=== PATIENT | female | born 1930 | race Caucasian/White ===

== ENCOUNTER 2017-01-03 14:15 | Emergency (ER) | payer OTHER, BC ==
[2017-01-03 14:46] VITALS: TEMP 97.7; BMI 16.5
--- NOTE | 2017-01-03 15:01 | PDOC ---
History of Present Illness - General History Source: Patient Exam Limitations: No Limitations <Chely Navas - Last Filed: 01/03/17 18:53> <Corine Mack - Last Filed: 01/04/17 15:00> - General Chief Complaint: Chest Pain Stated Complaint: CHEST PAIN Time Seen by Provider: 01/03/17 14:51 - History of Present Illness Initial Comments: CHIEF COMPLAINT: 86 y/o afebrile female with PMH HTN and ?afib (on Plavix) c/o chest pain, nausea and retching since yesterday morning. HISTORY OF PRESENT ILLNESS: The patient states she woke up yesterday with anterior chest pain that she describes as "soreness" in the morning that went away. She also began feeling "lousy", complaining of nausea and retching. She states the symptoms continued today and she hasn't eaten or drank much. She states she's had a dry cough and sneezing for a few weeks now but that is improving. She denies fever, PEDRO, neck pain, changes in vision/hearing, hemoptysis, abdominal pain, hematuria, dysuria, diarrhea, constipation, melena, bloody stools. PCP is Dr. Phoenix Vital signs on arrival are within normal limits. REVIEW OF SYSTEMS: GENERAL/CONSTITUTIONAL: No fever/chills. No weakness. No weight change. HEAD, EYES, EARS, NOSE AND THROAT: No change in vision. +right ear pain. No ear discharge. No sore throat. CARDIOVASCULAR: +anterior chest pain. No shortness of breath. RESPIRATORY: +dry cough and sneezing. No wheezing or hemoptysis. GASTROINTESTINAL: +nausea and retching. No abd pain, diarrhea, constipation. GENITOURINARY: No dysuria, frequency, or change in urination. MUSCULOSKELETAL: No joint or muscle swelling or pain. No neck or back pain. SKIN: No rash or easy bruising. NEUROLOGIC: No headache, vertigo, loss of consciousness, or loss of sensation. PHYSICAL EXAM: GENERAL: The patient is awake, alert, and fully oriented, in no acute distress. She is well appearing and pleasant. She is sneezing quite a bit. HEAD: Normal with no signs of trauma. ENT: Pupils equal, round and reactive to light, extraocular movements intact, sclera anicteric, conjunctiva clear. Normal TM and canal b/l. LUNGS: Clear to auscultation bilaterally. Normal excursion. No respiratory distress or use of accessory muscles. CV: RRR, S1/S2, no MRG. Cap refill < 2 sec. CHEST WALL: Chest pain reproduced with palpation of entire anterior chest from T4-T8. ABDOMEN: Soft, non-distended, non-tender even to deep palpation, no hepatomegaly or splenomegaly, no masses. EXTREMITIES: Normal range of motion, no edema. NEUROLOGICAL: Normal speech. CN II-XII grossly intact. PSYCH: Normal mood, normal affect. SKIN: Warm, dry, decreased turgor, no rashes or lesions noted. (Chely Navas) Past History - Past Medical History HTN: Yes - Psycho/Social/Smoking Cessation Hx Anxiety: No Suicidal Ideation: No Smoking History: Never smoked Hx Alcohol Use: No Drug/Substance Use Hx: No Substance Use Type: None <Chely Navas - Last Filed: 01/03/17 18:53> <Corine Mack - Last Filed: 01/04/17 15:00> - Past Medical History Allergies/Adverse Reactions: Allergies Allergy/AdvReac Type Severity Reaction Status Date / Time No Known Allergies Allergy Verified 01/03/17 14:22 Home Medications: Ambulatory Orders Aspirin [ASA -] 81 mg PO DAILY 01/03/17 Clopidogrel Bisulfate [Plavix -] 75 mg PO DAILY 01/03/17 Levothyroxine Sodium [Unithroid] 50 mcg PO DAILY 01/03/17 Metoprolol Tartrate [Lopressor -] 25 mg PO BID 01/03/17 - Vital Signs Last Vital Signs Temp Pulse Resp BP Pulse Ox 97.7 F 67 22 139/70 95 01/03/17 14:21 01/03/17 18:21 01/03/17 14:21 01/03/17 18:21 01/03/17 18:21 Heart Score/ECG Review <Chely Navas - Last Filed: 01/03/17 18:53> <Corine Mack - Last Filed: 01/04/17 15:00> - ECG Intrepretation Comment:: Twelve-lead EKG was performed and reviewed by Dr. Mack. There is normal sinus rhythm with a normal rate. The axis is normal. The intervals are normal. There are no ST or T wave abnormalities. Impression: Normal twelve-lead EKG (Chely Navas) ED Treatment Course - LABORATORY CBC & Chemistry Diagram: 01/03/17 13:35 01/03/17 13:35 <Chely Navas - Last Filed: 01/03/17 18:53> - LABORATORY CBC & Chemistry Diagram: 01/03/17 13:35 01/03/17 13:35 <Corine Mack - Last Filed: 01/04/17 15:00> - ADDITIONAL ORDERS Additional order review: 01/03/17 13:35 RBC 4.08 MCV 93.9 MCHC 33.4 RDW 13.7 MPV 7.3 L D Neutrophils % 74.6 Lymphocytes % 7.9 L Monocytes % 16.8 H Eosinophils % 0.2 Basophils % 0.5 - Medications Given in the ED: ED Medications Discontinued Medications Generic Name Dose Route Start Last Admin Trade Name Marita PRN Reason Stop Dose Admin Acetaminophen 650 mg 01/03/17 17:55 01/03/17 18:20 Tylenol - PO 01/03/17 17:56 650 mg ONCE ONE Administration Sodium Chloride 1,000 mls @ 1,000 mls/hr 01/03/17 15:02 01/03/17 15:40 Normal Saline - IV 01/03/17 16:01 1,000 mls/hr ASDIR STA Administration Famotidine/Sodium Chloride 50 mls @ 100 mls/hr 01/03/17 16:30 01/03/17 16:43 Pepcid 20 Mg Premixed Ivpb - IVPB 01/03/17 16:59 100 mls/hr ONCE ONE Administration Ondansetron HCl 4 mg 01/03/17 16:30 01/03/17 16:43 Zofran Injection IVPUSH 01/03/17 16:31 4 mg ONCE ONE Administration Medical Decision Making <Chely Navas - Last Filed: 01/03/17 18:53> <Corine Mack - Last Filed: 01/04/17 15:00> - Medical Decision Making A/P: 86 y/o afebrile female with chest pain, nausea, retching since yesterday morning. Plan is as follows: 1. EKG 2. CXR 3. Labs 4. IV fluids 5. IV pepcid and zofran CXR IMPRESSION: No acute pathology. Coarse lung markings. Labs unremarkable EKG normal UA negative for infection. The patient states she feels well but still has chest soreness. Will give PO tylenol and then discharge to home. The patient was instructed to take tylenol if needed for pain and take at least 1 deep breath per hour. Suggested she apply ice if she can tolerate it to her sore chest. Instructed her to drink plenty of fluids and call Dr. Phoenix Thursday to schedule follow up appointment. Instructed her to return to the ER immediately with any worsening or concerning symptoms. The patient verbalizes understanding of all instructions, has no further questions and is awaiting discharge. (Chely Navas) *DC/Admit/Observation/Transfer <Chely Navas - Last Filed: 01/03/17 18:53> <Corine Mack - Last Filed: 01/04/17 15:00> Diagnosis at time of Disposition: Musculoskeletal chest pain, Cough Nausea and vomiting Qualifiers: Vomiting type: unspecified Vomiting Intractability: non-intractable Qualified Code(s): R11.2 - Nausea with vomiting, unspecified - Discharge Dispostion Disposition: HOME Condition at time of disposition: Good - Referrals Referrals: Brendan Phoenix MD [Primary Care Provider] - - Patient Instructions Printed Discharge Instructions: DI for Musculoskeletal Pain, Nausea and Vomiting-Adult Additional Instructions: Discharge Instructions: -Your lab work, urinalysis, chest xray and EKG were normal -Please take 650mg of Tylenol every 4 hours for pain if needed -Take at least 1 deep breath per hour -Call Dr. Phoenix on Thursday to schedule follow up appointment -Return to the ER with any worsening or concerning symptoms. - Attestations Physician Attestion: I reviewed the case with the mid-level practitioner and agree with the mid- level practitioner's assessment, diagnosis and disposition. (Corine Mack)
[2017-01-03] MEDS ORDERED: SODIUM CHLORIDE 1,000 ML IV STA (15:02)
[2017-01-03 15:46] LABS: BASOPHIL 0.5 % (0-2.0); EOSINOPHIL 0.2 % (0-4.5); MCH 31.4 pg (25.7-33.7); MCHC 33.4 g/dl (32.0-36.0); MEAN CELL VOLUME 93.9 fl (80-96); MEAN PLT VOLUME 7.3 fl (7.5-11.1); NEUTROPHILS 74.6 % (42.8-82.8); PLATELET COUNT 482 K/MM3 (134-434); RDW 13.7 % (11.6-15.6); WHITE BLOOD COUNT 8.5 K/mm3 (4.0-10.0)
[2017-01-03 16:08] LABS: ALBUMIN 3.2 g/dl (3.4-5.0); ANION GAP 11 (8-16); BILIRUBIN,TOTAL 0.9 mg/dL (0.2-1.0); CALCIUM 9.5 mg/dL (8.5-10.1); CO2 27 mmol/L (21-32); CREATININE 0.9 mg/dL (0.55-1.02); GLUCOSE,RANDOM 98 mg/dL (74-106); SGOT/AST 13 U/L (15-37); SGPT/ALT 9 U/L (12-78); TOT PROT 7.1 g/dl (6.4-8.2)
[2017-01-03 16:11] LABS: ALK PHOS 94 U/L (45-117); TROPONIN I < 0.02 ng/ml (0.00-0.05)
[2017-01-03] MEDS ORDERED: FAMOTIDINE 20 MG/50 ML IVPB 50 ML IVPB ONE ×2 (16:30→16:39)
[2017-01-03] MEDS ORDERED: ONDANSETRON 4 MG/2 ML VIAL IVPUSH ONE (16:30)
[2017-01-03 16:32] LABS: URINE APPEARANCE CLEAR; URINE BILIRUBIN NEGATIVE (NEGATIVE); URINE BLOOD NEGATIVE (NEGATIVE); URINE COLOR LTYELLOW; URINE GLUCOSE (UA) NEGATIVE (NEGATIVE); URINE KETONE TRACE (NEGATIVE); URINE NITRITE NEGATIVE (NEGATIVE); URINE PROTEIN NEGATIVE (NEGATIVE); URINE UROBILINOGEN NEGATIVE mg/dL (0.2-1.0)
[2017-01-03] MEDS ORDERED: ONDANSETRON 4 MG/2 ML VIAL ONE (16:39)
[2017-01-03 16:41] LABS: URINE LEUK ESTERASE TRACE (NEGATIVE)
[2017-01-03 16:43] LABS: URINE MUCUS RARE; URINE RBC 3 /hpf (0-3); URINE WBC 3 /hpf (3-5)
[2017-01-03] MEDS ORDERED: ACETAMINOPHEN 325 MG TABLET (FP) PO ONE (17:55)
[2017-01-03] MEDS ORDERED: ACETAMINOPHEN 325 MG TABLET (FP) ONE (18:17)
[2017-01-03 19:16] VITALS: BP 139/70; PULSE 67
--- NOTE | 2017-01-04 13:58 | EKG ---
Test Reason : Blood Pressure : / mmHG Vent. Rate : 074 BPM Atrial Rate : 074 BPM P-R Int : 142 ms QRS Dur : 078 ms QT Int : 408 ms P-R-T Axes : 044 -49 031 degrees QTc Int : 452 ms NORMAL SINUS RHYTHM LEFT ANTERIOR FASCICULAR BLOCK ABNORMAL ECG WHEN COMPARED WITH ECG OF 12-AUG-2006 08:40, NO SIGNIFICANT CHANGE WAS FOUND Confirmed by DAPHNE MARTIN, BILLY ([id number]) on 01/04/2017 1:57:59 PM Referred By: Confirmed By:BILLY SERNA MD
== END 2017-01-03 19:16 | disposition home or self-care (01) ==
LOC: JER 14:15
PROC: 3E0337Z Introduction of Electrolytic and Water Balance Substance into Peripheral Vein, Percutaneous Approach (ICD-10-PCS; principal; 2017-01-03)
PROC: 3E033GC Introduction of Other Therapeutic Substance into Peripheral Vein, Percutaneous Approach (ICD-10-PCS; 2017-01-03)
PROC: 3E033GC Introduction of Other Therapeutic Substance into Peripheral Vein, Percutaneous Approach (ICD-10-PCS; 2017-01-03)
DX: R07.89 Other chest pain (principal); I10 Essential (primary) hypertension; I48.91 Unspecified atrial fibrillation; Z79.01 Long term (current) use of anticoagulants
CPT/HCPCS: 36415; 71010-TC; 80053; 81003; 81015; 82550; 83605; 83690; 84484; 85025; 87086; 93005; 93010; 96361; 96365; 96375; 99284-25

== ENCOUNTER 2017-01-14 14:07 | Inpatient (IN) | payer OTHER, BC ==
--- NOTE | 2017-01-14 15:15 | PDOC ---
History of Present Illness - General Chief Complaint: Weakness Stated Complaint: Weakness Time Seen by Provider: 01/14/17 14:22 History Source: Patient Exam Limitations: Clinical Condition - History of Present Illness Initial Comments: 01/14/17 15:09 The patient is an 86F with a PMH of HTN, hypothyroidism, a-fib on asa and plavix , and past TIA who presents to the ED via EMS from home for weakness, cough, jaw pain, and headache. EMS states that the patient complained of weakness, although vitals were stable on their arrival. The patient states that she has not eaten since yesterday. Today she states she feels weak. Her headache is worse with jaw movement and talking. The patient denies any focal neurologic deficits. PSH: noncontributory ALlergies: none Social: none Past History - Past Medical History Allergies/Adverse Reactions: Allergies Allergy/AdvReac Type Severity Reaction Status Date / Time No Known Allergies Allergy Verified 01/03/17 14:22 Home Medications: Ambulatory Orders Aspirin [ASA -] 81 mg PO DAILY 01/03/17 Clopidogrel Bisulfate [Plavix -] 75 mg PO DAILY tablet 01/26/17 Levothyroxine [Synthroid -] 50 mcg PO DAILY@0700 tablet 01/26/17 Metoprolol Succinate [Toprol Xl -] 25 mg PO DAILY #7 tab.sr.24h 01/26/17 Prednisone [Deltasone -] 40 mg PO UTDICT #1 tablet 01/26/17 HTN: Yes - Psycho/Social/Smoking Cessation Hx Anxiety: No Suicidal Ideation: No Smoking History: Never smoked Hx Alcohol Use: No Drug/Substance Use Hx: No Substance Use Type: None Review of Systems - Review of Systems Able to Perform ROS?: Yes Is the patient limited Nepali proficient: No Constitutional: Yes: Chills. No: Fever HEENTM: Yes: Recent change in vision Respiratory: Yes: Shortness of Breath Cardiac (ROS): Yes: Chest Pain ABD/GI: Yes: Constipated, Nausea. No: Diarrhea, Vomiting : No: Burning, Dysuria, Discharge, Hematuria Neurological: Yes: Headache, Weakness. No: Numbness, Paresthesia, Tingling *Physical Exam - Vital Signs Last Vital Signs Temp Pulse Resp BP Pulse Ox 97.5 F L 66 20 127/72 97 01/14/17 14:22 01/14/17 14:22 01/14/17 14:22 01/14/17 14:22 01/14/17 14:22 - Physical Exam General Appearance: Yes: Appropriately Dressed, Thin HEENT: positive: Pale Conjunctivae. negative: Tonsillar Exudate, Tonsillar Erythema, TM Bulging, TM Dull, TM Erythema Respiratory/Chest: positive: Crackles. negative: Chest Tender, Respiratory Distress Cardiovascular: positive: Regular Rhythm, Regular Rate, S1, S2 Gastrointestinal/Abdominal: positive: Tender (epigastric), Flat, Soft. negative : Guarding, Rebound Musculoskeletal: positive: CVA Tenderness (R), CVA Tenderness (L) Integumentary: positive: Dry, Warm. negative: Swelling Neurologic: positive: Alert, Normal Mood/Affect Heart Score/ECG Review - ECG Impressions Normal ECG: Yes ED Treatment Course - LABORATORY CBC & Chemistry Diagram: 01/24/17 07:35 01/24/17 07:35 - RADIOLOGY Radiology Studies Ordered: Category Date Time Status CHEST X-RAY PORTABLE* [RAD] Stat Radiology 01/14/17 14:22 Taken Medical Decision Making - Medical Decision Making 01/14/17 16:14 The patient is an 86F with a PMH of HTN, hypothyroidism, a-fib on plavix and asa , and TIA who presents via EMS for weakness, cough, and jaw pain w/ headache. I have spoken to the patient's PCP who states that the patient is normally coherent, lives alone, and self reliant. His # is [phone] and wants updates. I have ordered a broad set of labs and imaging to rule out an infectious process and sepsis. I am also concerned for TMJ and/or temporal arteritis. I have concern for a UTI/pna and I want to rule out ACS. EKG is NSR. Labs are pending. No white count. 01/14/17 16:20 CXR shows no acute process. 01/14/17 20:[address] was read as negative. 01/14/17 21:51 The patient has a 1+ leuk esterase in urine. Is still complaining of weakness. Dr. Yeung has agreed to accept the admission for weakness, UTI, and AMS. *DC/Admit/Observation/Transfer Diagnosis at time of Disposition: Weakness UTI (urinary tract infection) Qualifiers: Urinary tract infection type: site unspecified Hematuria presence: without hematuria Qualified Code(s): N39.0 - Urinary tract infection, site not specified Altered mental status Qualifiers: Altered mental status type: unspecified Qualified Code(s): R41.82 - Altered mental status, unspecified - Discharge Dispostion Disposition: VNS/HOME HEALTH CARE Condition at time of disposition: Improved Admit: Yes - Prescriptions - Referrals - Attestations Physician Attestion: 01/29/17 13:40 I, Dr. Clinton Vera, attest that this document has been prepared under my direction and personally reviewed by me in its entirety. I further attest, that it accurately reflects all work, treatment, procedures and medical decision -making performed by me.
[2017-01-14] MEDS ORDERED: SODIUM CHLORIDE 0.9% 1000 ML INFUS.BAG IV ONE ×2 (15:19→18:55)
--- NOTE | 2017-01-14 15:37 | PDOC ---
Attending Attestation - Resident Resident Name: Clinton Vera - ED Attending Attestation I have performed the following: I have examined & evaluated the patient, The case was reviewed & discussed with the resident, I agree w/resident's findings & plan, Exceptions are as noted - HPI HPI: 86 yo F hx hypothyroid, HTN, afib presents with weakness for past few days. She states she has had poor appetite, dec PO intake, diffuse body weakness. Denies F /C, recent illness. No recent trauma. Denies cp, SOB. No recent vision changes. - Physicial Exam PE: GENERAL: Awake, alert, and oriented, in no acute distress. Appears pale and thin. HEAD: No signs of trauma EYES: PERRLA, EOMI, sclera anicteric, conjunctiva clear ENT: Auricles normal inspection, hearing grossly normal, nares patent, oropharynx clear without exudates. Dry mucosa NECK: Normal ROM, supple, no lymphadenopathy, JVD, or masses LUNGS: Breath sounds equal, clear to auscultation bilaterally. No wheezes, and no crackles HEART: Regular rate and rhythm, normal S1 and S2, no murmurs, rubs or gallops ABDOMEN: Soft, nontender, normoactive bowel sounds. No guarding, no rebound. No masses EXTREMITIES: Normal range of motion, no edema. No clubbing or cyanosis. No cords, erythema, or tenderness NEUROLOGICAL: Cranial nerves II through XII grossly intact. Normal speech. Motor and sensation intact. SKIN: Warm, Dry, normal turgor, no rashes or lesions noted. - Medical Decision Making 86 yo F vague historian presents with diffuse weakness. Multiple possibilities on DDx including ACS, electrolyte disorders, anemia, UTI, pna. Will obtain labs , UA, CXR.
[2017-01-14 15:51] LABS: BASOPHIL 1.1 % (0-2.0); EOSINOPHIL 0.5 % (0-4.5); MCH 30.2 pg (25.7-33.7); MCHC 32.6 g/dl (32.0-36.0); MEAN CELL VOLUME 92.6 fl (80-96); MEAN PLT VOLUME 7.3 fl (7.5-11.1); NEUTROPHILS 75.9 % (42.8-82.8); PLATELET COUNT 542 K/MM3 (134-434); RDW 14.4 % (11.6-15.6); WHITE BLOOD COUNT 8.9 K/mm3 (4.0-10.0)
[2017-01-14 16:18] LABS: MAGNESIUM 2.3 mg/dL (1.8-2.4)
[2017-01-14 16:19] LABS: ALBUMIN 2.8 g/dl (3.4-5.0); ALK PHOS 82 U/L (45-117); ANION GAP 11 (8-16); BILIRUBIN,TOTAL 0.5 mg/dL (0.2-1.0); CALCIUM 9.4 mg/dL (8.5-10.1); CO2 28 mmol/L (21-32); CREATININE 0.8 mg/dL (0.55-1.02); GLUCOSE,RANDOM 84 mg/dL (74-106); SGOT/AST 12 U/L (15-37); SGPT/ALT 8 U/L (12-78); TOT PROT 6.5 g/dl (6.4-8.2); TROPONIN I < 0.02 ng/ml (0.00-0.05)
[2017-01-14 16:21] LABS: INR 1.14 (0.82-1.09); PROTHROMBIN TIME (PATIENT) 12.6 SEC (9.98-11.88)
[2017-01-14 20:38] LABS: URINE APPEARANCE CLEAR; URINE BILIRUBIN NEGATIVE (NEGATIVE); URINE BLOOD 2+ (NEGATIVE); URINE COLOR LTYELLOW; URINE GLUCOSE (UA) NEGATIVE (NEGATIVE); URINE KETONE 1+ (NEGATIVE); URINE NITRITE NEGATIVE (NEGATIVE); URINE PROTEIN NEGATIVE (NEGATIVE); URINE UROBILINOGEN NEGATIVE mg/dL (0.2-1.0)
[2017-01-14 21:28] LABS: URINE LEUK ESTERASE 1+ (NEGATIVE)
[2017-01-14 21:52] LABS: URINE MUCUS FEW; URINE RBC 13 /hpf (0-3); URINE WBC 4 /hpf (3-5)
[2017-01-15] MEDS: DEXTROSE 5%-0.45% SALINE 1,000 ML IV SCH ×2 (03:13→23:02)
[2017-01-15 04:24] VITALS: BMI 16.3
[2017-01-15 09:15] LABS: THYROID STIMULATING HORMONE 6.99 uIU/ml (0.358-3.74)
--- NOTE | 2017-01-15 10:34 | HP ---
Admitting History and Physical - Primary Care Physician PCP: Clinton Yeung - Admission Chief Complaint: progressive weakness History of Present Illness: which has been going on for the past several weeks of insidious onset for this 86 y/o F, who has (up until now) lived independently on her own. Past hx is (+) for hypothyroidism & ATF (but was taken off A/c likely due to unacceptable risks ); she remains on ASA + Plavix. She c/o generalized aches and pains as well as bilat jaw angle pains (which is not new), but has been able to eat nonetheless. Since this all began, she has been very inactive, eating poorly, and just sitting around. She denied any new pains, n-v, diarrhea, dizziness, CP; but does get occasional coughing; she denies dysuria, leg swelling, but c/o feeling cold. She was seen in the ED about 10 days ago for this very problem, and blood testing at the time was unremarkable and was d/c'd back home. She was seen in f/ u by her PCP, who found her listless but awake and coherent in her residence, with stable VS; however, she continued to have progressive weakness to the point where she could no longer carry out her daily living activities. History Source: Patient Limitations to Obtaining History: No Limitations - Past Medical History [employer]: Yes: CVA (old Hx of TIA) Cardiovascular: Yes: AFIB (intermittent) Pulmonary: Yes: Other (unexplained cough) ...: No Musculoskeletal: Yes: Other (generalized aches and pains, but c/o bilat jaw pains, R>L) Endocrine: Yes: Hypothyroidism - Past Surgical History Past Surgical History: Yes: Breast Biopsy, Cholecystectomy - Smoking History Smoking history: Never smoked - Alcohol/Substance Use Hx Alcohol Use: No History of Substance Use: reports: None - Social History Usual Living Arrangement: Yes: Alone ADL: Independent 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 History of Recent Travel: No Home Medications - Allergies Allergies/Adverse Reactions: Allergies Allergy/AdvReac Type Severity Reaction Status Date / Time No Known Allergies Allergy Verified 01/03/17 14:22 - Home Medications Home Medications: Ambulatory Orders Aspirin [ASA -] 81 mg PO DAILY 01/03/17 Clopidogrel Bisulfate [Plavix -] 75 mg PO DAILY 01/03/17 Levothyroxine Sodium [Unithroid] 50 mcg PO DAILY 01/03/17 Metoprolol Tartrate [Lopressor -] 25 mg PO BID 01/03/17 Family Disease History - Family Disease History Family History: Unremarkable Review of Systems - Review of Systems Constitutional: reports: Weakness Eyes: reports: No Symptoms HENT: reports: Other (see HPI) Neck: reports: No Symptoms Cardiovascular: reports: No Symptoms Respiratory: reports: Cough Gastrointestinal: reports: Abdominal Pain Genitourinary: reports: No Symptoms Breasts: reports: No Symptoms Reported Musculoskeletal: reports: Muscle Weakness Integumentary: reports: No Symptoms Neurological: reports: Weakness Endocrine: reports: Intolerance to Cold Hematology/Lymphatic: reports: No Symptoms Psychiatric: reports: No Symptoms Physical Examination Vital Signs: Vital Signs Temperature 98 F 01/15/17 09:15 Pulse Rate 72 01/15/17 09:15 Respiratory Rate 20 01/15/17 09:15 Blood Pressure 145/57 01/15/17 09:15 O2 Sat by Pulse Oximetry (%) 98 01/15/17 04:43 Findings/Remarks: skin--dry head--NC; alopecia; temporal pulses felt bilaterally eyes--eomi, anicteric oral--normal appearing mucous membranes ears--no deformities; tenderness on TMJ area; hearing intact neck--no masses, nodes, bruits or goiter lungs--BS bilat diminshed; unlabored heart--RR breasts--bilat atrophy no masses, nodules, (+) old Rt periareolar scar chest--no rib tenderness abd--soft, RUQ scar, (+) notable RUQ tenderness, no other mases or tenderness anywhere else ext--bilat muscular atrophy; no soft tissue tenderness, puilses bilat diminished ; no CCE; no pain on ROM back--no zuri tenderness neuro--alert, coherent and able to give pertinent details of history as it relates to her condition; memory appears to be grossly intact; speech slow but fluent; good eye contact; follows commands well; moves all Extrem purposefully; plantars downgoing; no rigidity or tremors appreciated Labs: CBCD WBC 8.9 K/mm3 (4.0-10.0) 01/14/17 14:51 RBC 3.79 M/mm3 (3.60-5.2) 01/14/17 14:51 Hgb 11.4 GM/dL (10.7-15.3) D 01/14/17 14:51 Hct 35.1 % (32.4-45.2) 01/14/17 14:51 MCV 92.6 fl (80-96) 01/14/17 14:51 MCHC 32.6 g/dl (32.0-36.0) 01/14/17 14:51 RDW 14.4 % (11.6-15.6) 01/14/17 14:51 Plt Count 542 K/MM3 (134-434) H 01/14/17 14:51 MPV 7.3 fl (7.5-11.1) L 01/14/17 14:51 CMP Sodium 138 mmol/L (136-145) 01/14/17 14:51 Potassium 4.2 mmol/L (3.5-5.1) 01/14/17 14:51 Chloride 99 mmol/L (98-107) 01/14/17 14:51 Carbon Dioxide 28 mmol/L (21-32) 01/14/17 14:51 Anion Gap 11 (8-16) 01/14/17 14:51 BUN 13 mg/dL (7-18) 01/14/17 14:51 Creatinine 0.8 mg/dL (0.55-1.02) 01/14/17 14:51 Creat Clearance w eGFR > 60 (>60) 01/14/17 14:51 Random Glucose 84 mg/dL (74-106) 01/14/17 14:51 Calcium 9.4 mg/dL (8.5-10.1) 01/14/17 14:51 Total Bilirubin 0.5 mg/dL (0.2-1.0) D 01/14/17 14:51 AST 12 U/L (15-37) L 01/14/17 14:51 ALT 8 U/L (12-78) L 01/14/17 14:51 Alkaline Phosphatase 82 U/L (45-117) 01/14/17 14:51 Total Protein 6.5 g/dl (6.4-8.2) 01/14/17 14:51 Albumin 2.8 g/dl (3.4-5.0) L 01/14/17 14:51 CARDIAC ENZYMES Creatine Kinase 40 IU/L (26-192) 01/14/17 14:51 Troponin I < 0.02 ng/ml (0.00-0.05) 01/14/17 14:51 Urine Test Results Urine Color Ltyellow 01/14/17 19:53 Urine Appearance Clear 01/14/17 19:53 Urine pH 5.0 (5.0-8.0) 01/14/17 19:53 Ur Specific Guston 1.015 (1.005-1.025) 01/14/17 19:53 Urine Protein Negative (NEGATIVE) 01/14/17 19:53 Urine Glucose (UA) Negative (NEGATIVE) 01/14/17 19:53 Urine Ketones 1+ (NEGATIVE) H 01/14/17 19:53 Urine Blood 2+ (NEGATIVE) H 01/14/17 19:53 Urine Nitrite Negative (NEGATIVE) 01/14/17 19:53 Urine Bilirubin Negative (NEGATIVE) 01/14/17 19:53 Ur Leukocyte Esterase 1+ (NEGATIVE) H 01/14/17 19:53 Urine RBC 13 /hpf (0-3) 01/14/17 19:53 Urine WBC 4 /hpf (3-5) 01/14/17 19:53 Ur Epithelial Cells Rare /hpf (FEW) 01/14/17 19:53 Urine Mucus Few 01/14/17 19:53 Imaging - Results Chest X-ray: Report Reviewed Cat Scan: Report Reviewed EKG: Report Reviewed Problem List - Problems (1) Weakness Assessment/Plan: to the extent that she is no longer capable of caring for self; due to underlying insidious onset of gross weakness; which could be due to occult infection; metabolic matters, or even a malignancy. PLAN: undertake w/u. Code(s): R53.1 - WEAKNESS (2) Pain localized to upper abdomen Assessment/Plan: specifically the RUQ area but extending to epigastric area as well. PLAN: US of Abd; check stool for OB Code(s): R10.10 - UPPER ABDOMINAL PAIN, UNSPECIFIED (3) Cough Assessment/Plan: intermittent; unsure if this is related to said condition; CXR non diagnostic Code(s): R05 - COUGH (4) UTI (urinary tract infection) Assessment/Plan: UA suggests infection; though unsure if this is behind her clinical malaise; will Tx with Abs. Code(s): N39.0 - URINARY TRACT INFECTION, SITE NOT SPECIFIED Qualifiers: Urinary tract infection type: site unspecified Hematuria presence: without hematuria Qualified Code(s): N39.0 - Urinary tract infection, site not specified (5) ESR raised Assessment/Plan: along with high CRP; exam reveals bilat jaw pain, but unsure if this is a "[place]" type of finding PLAN: neuro eval Code(s): R70.0 - ELEVATED ERYTHROCYTE SEDIMENTATION RATE (6) Atrial fibrillation Assessment/Plan: history of: but not on a-c any longer as per PCP; HR seems to be well controlled. cont dual agents & BB Code(s): I48.91 - UNSPECIFIED ATRIAL FIBRILLATION Qualifiers: Atrial fibrillation type: unspecified Qualified Code(s): I48.91 - Unspecified atrial fibrillation (7) Hypothyroid Assessment/Plan: for which she is supplementation; TSH a bit high; will get full TFTS Code(s): E03.9 - HYPOTHYROIDISM, UNSPECIFIED Qualifiers: Hypothyroidism type: unspecified Qualified Code(s): E03.9 - Hypothyroidism, unspecified (8) History of TIA (transient ischemic attack) Assessment/Plan: is o asa+ Plavix; cause possible 2nd ATF; will cont both agents Code(s): Z86.73 - PRSNL HX OF TIA (TIA), AND CEREB INFRC W/O RESID DEFICITS (9) Failure to thrive in adult Assessment/Plan: Has thus far been independent but insidious onset of weakness is no longer making this possible; unsure as of this time if this matter is reversible. PLAN : will need further w/u; may need SNF placement Code(s): R62.7 - ADULT FAILURE TO THRIVE Assessment/Plan debilitated 86 y/o WF failing to thrive in her usual environment; and is inacapable of undertaking own daily living activities. ~~~~~~~~~~~~~~~~~~~~~~~~ Dr Yeung.....1 Hr
[2017-01-15 11:09] LABS: FREE T4 1.53 ng/dl (0.76-1.46)
[2017-01-15] MEDS: METOPROLOL SUCCINATE 25 MG TAB.SR.24H (FP) PO SCH (11:41)
[2017-01-15] MEDS: LEVOFLOXACIN 250 MG IVPB 50 ML IVPB SCH (11:41)
--- NOTE | 2017-01-15 11:56 | EKG ---
Test Reason : Blood Pressure : / mmHG Vent. Rate : 063 BPM Atrial Rate : 063 BPM P-R Int : 140 ms QRS Dur : 072 ms QT Int : 420 ms P-R-T Axes : 011 -56 012 degrees QTc Int : 429 ms NORMAL SINUS RHYTHM LEFT ANTERIOR FASCICULAR BLOCK ABNORMAL ECG WHEN COMPARED WITH ECG OF 03-JAN-2017 14:30, NO SIGNIFICANT CHANGE WAS FOUND Confirmed by EMILIO MARTIN, CHAUNCEY ([id number]) on 01/15/2017 11:56:16 AM Referred By: Confirmed By:CHAUNCEY JHAVERI MD
[2017-01-15] MEDS ORDERED: ACETAMINOPHEN 325 MG TABLET (FP) PO PRN (17:59)
[2017-01-16] MEDS: LEVOTHYROXINE NA 50 MCG TABLET (FP) PO SCH (06:37)
[2017-01-16 09:04] LABS: ANION GAP 7 (8-16); CALCIUM 8.8 mg/dL (8.5-10.1); CO2 26 mmol/L (21-32); GLUCOSE,RANDOM 116 mg/dL (74-106)
[2017-01-16 09:06] LABS: CREATININE 0.6 mg/dL (0.55-1.02)
[2017-01-16 09:10] LABS: MCH 30.3 pg (25.7-33.7); MCHC 32.7 g/dl (32.0-36.0); MEAN CELL VOLUME 92.6 fl (80-96); MEAN PLT VOLUME 7.4 fl (7.5-11.1); PLATELET COUNT 550 K/MM3 (134-434); RDW 13.7 % (11.6-15.6); WHITE BLOOD COUNT 7.8 K/mm3 (4.0-10.0)
[2017-01-16] MEDS: LEVOFLOXACIN 250 MG IVPB 50 ML IVPB SCH (09:38)
[2017-01-16] MEDS: METOPROLOL SUCCINATE 25 MG TAB.SR.24H (FP) PO SCH (09:38)
[2017-01-16] MEDS: CLOPIDOGREL BISULFATE 75 MG TABLET (FP) PO SCH (09:38)
[2017-01-16] MEDS: DEXTROSE 5%-0.45% SALINE 1,000 ML IV SCH (13:16)
--- NOTE | 2017-01-16 14:57 | PN ---
Progress Note (short form) - Note Progress Note: Current Medications Acetaminophen (Tylenol -) 650 mg PO Q6H PRN PRN Reason: FEVER OR PAIN Clopidogrel Bisulfate (Plavix -) 75 mg PO DAILY [facility] Last Admin: 01/16/17 09:38 Dose: 75 mg Dextrose/Sodium Chloride (D5-1/2ns -) 1,000 mls @ 100 mls/hr IV ASDIR [facility] Last Admin: 01/16/17 13:16 Dose: 100 mls/hr Levofloxacin (Levaquin 250 Mg Premixed Ivpb -) 50 mls @ 50 mls/hr IVPB DAILY [facility] Last Admin: 01/16/17 09:38 Dose: 50 mls/hr Levothyroxine Sodium (Synthroid -) 50 mcg PO DAILY@0700 [facility] Last Admin: 01/16/17 06:37 Dose: 50 mcg Metoprolol Succinate (Toprol Xl -) 12.5 mg PO DAILY [facility] Prednisone (Deltasone -) 20 mg PO ONCE ONE Stop: 01/17/17 10:01 Laboratory Results - last 24 hr 01/15/17 01/16/17 01/16/17 06:00 07:45 07:45 WBC 7.8 RBC 3.63 Hgb 11.0 Hct 33.6 MCV 92.6 MCH 30.3 MCHC 32.7 RDW 13.7 Plt Count 550 H MPV 7.4 L Sodium 139 Potassium 3.6 Chloride 106 Carbon Dioxide 26 Anion Gap 7 L BUN 6 L D Creatinine 0.6 D Random Glucose 116 H D Calcium 8.8 Cortisol AM Sample 23.6 Vital Signs Temperature 98.3 F 01/16/17 09:00 Pulse Rate 80 01/16/17 09:00 Respiratory Rate 20 01/16/17 09:00 Blood Pressure 98/68 01/16/17 09:00 O2 Sat by Pulse Oximetry (%) 96 01/15/17 22:22 CC: feels weak ```````````````` skin--no acute lesions heart--distant RR lungs--bilat distant BS abd--RUQ tenderness neuro--drowsy but rousable; coherent; speech is clear; responds appropriately; moves all E ```````````````````````````` Summ > Fail thrive--review of partial old records reveals the possible presence of a connective tissue/vascular issue; for which she was placed on prednisone for similar array of Sx; howver; she is currently getting "worse" as is less able to perform her daily living activities. According to nurse her PO intake is poor ; and needs assist to go to [facility]. PLAN: orthostatic BP; lower dose of BB given low BP. 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 > Hypothyroid--T4 in good range ~~~~~~~~~~~~~~~ dr Yeung Problem List - Problems (1) Weakness Code(s): R53.1 - WEAKNESS (2) Pain localized to upper abdomen Code(s): R10.10 - UPPER ABDOMINAL PAIN, UNSPECIFIED (3) Cough Code(s): R05 - COUGH (4) UTI (urinary tract infection) Code(s): N39.0 - URINARY TRACT INFECTION, SITE NOT SPECIFIED Qualifiers: Urinary tract infection type: site unspecified Hematuria presence: without hematuria Qualified Code(s): N39.0 - Urinary tract infection, site not specified (5) ESR raised Code(s): R70.0 - ELEVATED ERYTHROCYTE SEDIMENTATION RATE (6) Atrial fibrillation Code(s): I48.91 - UNSPECIFIED ATRIAL FIBRILLATION Qualifiers: Atrial fibrillation type: unspecified Qualified Code(s): I48.91 - Unspecified atrial fibrillation (7) Hypothyroid Code(s): E03.9 - HYPOTHYROIDISM, UNSPECIFIED Qualifiers: Hypothyroidism type: unspecified Qualified Code(s): E03.9 - Hypothyroidism, unspecified (8) History of TIA (transient ischemic attack) Code(s): Z86.73 - PRSNL HX OF TIA (TIA), AND CEREB INFRC W/O RESID DEFICITS (9) Failure to thrive in adult Code(s): R62.7 - ADULT FAILURE TO THRIVE
[2017-01-16] MEDS ORDERED: MAGNESIUM HYDROX 2400MG/30ML ORAL SUSPENSION 30 ML CUP PO ONE (17:30)
[2017-01-16] MEDS: SENNOSIDES 8.6MG TABLET (FP) PO SCH (23:25)
[2017-01-17] MEDS: DEXTROSE 5%-0.45% SALINE 1,000 ML IV SCH ×3 (05:49→15:26)
[2017-01-17] MEDS: LEVOTHYROXINE NA 50 MCG TABLET (FP) PO SCH (06:46)
[2017-01-17] MEDS ORDERED: predniSONE 20 MG TABLET (UD) PO ONE (10:00)
[2017-01-17] MEDS: METOPROLOL SUCCINATE 25 MG TAB.SR.24H (FP) PO SCH (11:17)
[2017-01-17] MEDS: CLOPIDOGREL BISULFATE 75 MG TABLET (FP) PO SCH (11:18)
[2017-01-17] MEDS ORDERED: BISACODYL 10 MG SUPP.RECT RC ONE (14:26)
[2017-01-17] MEDS: SENNOSIDES 8.6MG TABLET (FP) PO SCH (21:43)
[2017-01-18] MEDS: DEXTROSE 5%-0.45% SALINE 1,000 ML IV SCH ×2 (06:43→19:45)
[2017-01-18] MEDS: LEVOTHYROXINE NA 50 MCG TABLET (FP) PO SCH (06:43)
[2017-01-18 07:46] LABS: MCH 30.7 pg (25.7-33.7); MCHC 33.2 g/dl (32.0-36.0); MEAN CELL VOLUME 92.3 fl (80-96); MEAN PLT VOLUME 7.3 fl (7.5-11.1); PLATELET COUNT 500 K/MM3 (134-434); RDW 14.1 % (11.6-15.6); WHITE BLOOD COUNT 7.9 K/mm3 (4.0-10.0)
[2017-01-18 08:20] LABS: ANION GAP 7 (8-16); CALCIUM 8.9 mg/dL (8.5-10.1); CO2 29 mmol/L (21-32); CREATININE 0.7 mg/dL (0.55-1.02); GLUCOSE,RANDOM 116 mg/dL (74-106); LDH 110 U/L (84-246)
[2017-01-18] MEDS: CLOPIDOGREL BISULFATE 75 MG TABLET (FP) PO SCH (11:29)
[2017-01-18] MEDS: METOPROLOL SUCCINATE 25 MG TAB.SR.24H (FP) PO SCH (11:29)
[2017-01-18] MEDS ORDERED: predniSONE 10 MG TABLET (UD) PO ONE (18:45)
--- NOTE | 2017-01-18 20:54 | PN ---
Progress Note, Physician History of Present Illness: Coverage for : 86 y/o who c/o generalized weakness .Denies any pain. Denies melena, anorexia, weight loss - Current Medication List Current Medications: Active Medications Acetaminophen (Tylenol -) 650 mg PO Q6H PRN PRN Reason: FEVER OR PAIN Clopidogrel Bisulfate (Plavix -) 75 mg PO DAILY [facility] Last Admin: 01/18/17 11:29 Dose: 75 mg Levothyroxine Sodium (Synthroid -) 50 mcg PO DAILY@0700 [facility] Last Admin: 01/18/17 06:43 Dose: 50 mcg Metoprolol Succinate (Toprol Xl -) 12.5 mg PO DAILY [facility] Last Admin: 01/18/17 11:29 Dose: 12.5 mg Senna (Senna -) 2 tab PO HS [facility] Last Admin: 01/17/17 21:43 Dose: 2 tab - Objective Vital Signs: Vital Signs Temperature 97.8 F 01/18/17 19:36 Pulse Rate 60 01/18/17 19:36 Respiratory Rate 18 01/18/17 19:36 Blood Pressure 145/54 01/18/17 19:36 O2 Sat by Pulse Oximetry (%) 96 01/18/17 08:50 Constitutional: Yes: No Distress, Calm Eyes: Yes: WNL HENT: Yes: WNL Neck: Yes: Supple Cardiovascular: Yes: Regular Rate and Rhythm, S1, S2 Respiratory: Yes: CTA Bilaterally Gastrointestinal: Yes: Normal Bowel Sounds, Soft Genitourinary: Yes: WNL Musculoskeletal: Yes: WNL Extremities: Yes: WNL Edema: No Peripheral Pulses WNL: Yes Integumentary: Yes: WNL Neurological: Yes: Alert, Oriented ...Motor Strength: WNL Psychiatric: Yes: Alert, Oriented Labs: CBC, BMP 01/18/17 06:20 01/18/17 06:20 INR, PTT INR 1.14 (0.82-1.09) 01/14/17 14:51 Problem List - Problems (1) Failure to thrive in adult Assessment/Plan: has generalized weakness Code(s): R62.7 - ADULT FAILURE TO THRIVE (2) Anemia Assessment/Plan: Anemia of 10.9 with elevated sed rate and thrombocytosis Code(s): D64.9 - ANEMIA, UNSPECIFIED Assessment/Plan Imp: Anemia with elevated sed rate and thrombocytosis. Generalized weakness. Plan: CT scan of abd, US of pelvis all negative. As sed rate is elevated with low grade anemia and thrombocytosis may indicate occult neoplasm. will need GI w/u. Have ordered CEA and OB.
[2017-01-18] MEDS: SENNOSIDES 8.6MG TABLET (FP) PO SCH (22:05)
[2017-01-19 00:07] LABS: RHEUMATOID ARTHRITITS FACTOR 10.9 IU/mL (0.0-13.9)
[2017-01-19] MEDS: LEVOTHYROXINE NA 50 MCG TABLET (FP) PO SCH (06:10)
[2017-01-19] MEDS: METOPROLOL SUCCINATE 25 MG TAB.SR.24H (FP) PO SCH (11:28)
[2017-01-19] MEDS: CLOPIDOGREL BISULFATE 75 MG TABLET (FP) PO SCH (11:29)
--- NOTE | 2017-01-19 13:35 | PN ---
Progress Note (short form) - Note Progress Note: Current Medications Acetaminophen (Tylenol -) 650 mg PO Q6H PRN PRN Reason: FEVER OR PAIN Clopidogrel Bisulfate (Plavix -) 75 mg PO DAILY [facility] Last Admin: 01/19/17 11:29 Dose: 75 mg Levothyroxine Sodium (Synthroid -) 50 mcg PO DAILY@0700 [facility] Last Admin: 01/19/17 06:10 Dose: 50 mcg Metoprolol Succinate (Toprol Xl -) 12.5 mg PO DAILY [facility] Last Admin: 01/19/17 11:28 Dose: Not Given Senna (Senna -) 2 tab PO HS [facility] Last Admin: 01/18/17 22:05 Dose: Not Given Laboratory Results - last 24 hr 01/17/17 01/18/17 01/19/17 06:10 11:00 06:00 Ferritin 68.440 Stool Occult Blood Negative Rheumatoid Arth Biomark 10.9 Vital Signs Period Temp Pulse Resp BP Sys/Mohamud Pulse Ox Last 24 Hr 97.4 F-97.8 F 60-65 18-18 129-145/53-56 96 CC: feels a bit better, and has ambulated w/ PT; still has some cough ```````````````` skin--no acute lesions heart--distant RR lungs--bilat distant BS abd--RUQ tenderness; no rebound neuro--alert; coherent; speech is clear; responds appropriately; moves all E ```````````````````````````` Summ > cough--mild; not new; moist for which she was Rx'd Zithromax in late november 2016 by PCP; with little if any improvement; CXR not remarkable. 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 RF negative; stool for OB negative; but MONICA SPEP pending, echo does not describe any vegetations. 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 ~~~~~~~~~~~~~~~ dr Yeung Problem List - Problems (1) Weakness Code(s): R53.1 - WEAKNESS (2) Pain localized to upper abdomen Code(s): R10.10 - UPPER ABDOMINAL PAIN, UNSPECIFIED (3) Cough Code(s): R05 - COUGH (4) UTI (urinary tract infection) Code(s): N39.0 - URINARY TRACT INFECTION, SITE NOT SPECIFIED Qualifiers: Urinary tract infection type: site unspecified Hematuria presence: without hematuria Qualified Code(s): N39.0 - Urinary tract infection, site not specified (5) ESR raised Code(s): R70.0 - ELEVATED ERYTHROCYTE SEDIMENTATION RATE (6) Atrial fibrillation Code(s): I48.91 - UNSPECIFIED ATRIAL FIBRILLATION Qualifiers: Atrial fibrillation type: unspecified Qualified Code(s): I48.91 - Unspecified atrial fibrillation (7) Hypothyroid Code(s): E03.9 - HYPOTHYROIDISM, UNSPECIFIED Qualifiers: Hypothyroidism type: unspecified Qualified Code(s): E03.9 - Hypothyroidism, unspecified (8) History of TIA (transient ischemic attack) Code(s): Z86.73 - PRSNL HX OF TIA (TIA), AND CEREB INFRC W/O RESID DEFICITS (9) Failure to thrive in adult Code(s): R62.7 - ADULT FAILURE TO THRIVE
[2017-01-19] MEDS: predniSONE 5 MG TABLET (UD) PO SCH (14:48)
[2017-01-19] MEDS: SENNOSIDES 8.6MG TABLET (FP) PO SCH (22:54)
[2017-01-20 00:06] LABS: A/G RATIO 0.7 (0.7-1.7); ALBUMIN 2.3 g/dL (2.9-4.4); GLOBULIN, TOTAL 3.1 g/dL (2.2-3.9); TOTAL PROTEIN 5.4 g/dL (6.0-8.5)
[2017-01-20 06:06] LABS: SERUM IRON 28 ug/dL (27-139); TOTAL IRON BINDING CAPACITY 162 ug/dL (250-450); UIBC 134 ug/dL (118-369)
[2017-01-20] MEDS: LEVOTHYROXINE NA 50 MCG TABLET (FP) PO SCH (06:56)
[2017-01-20 07:53] LABS: MCH 30.3 pg (25.7-33.7); MCHC 33.2 g/dl (32.0-36.0); MEAN CELL VOLUME 91.3 fl (80-96); MEAN PLT VOLUME 7.3 fl (7.5-11.1); PLATELET COUNT 486 K/MM3 (134-434); RDW 14.4 % (11.6-15.6); WHITE BLOOD COUNT 7.4 K/mm3 (4.0-10.0)
[2017-01-20 10:00] LABS: ERYTHROCYTE SEDIMENTATION RATE 33 mm/hr (0-30)
[2017-01-20] MEDS: METOPROLOL SUCCINATE 25 MG TAB.SR.24H (FP) PO SCH (10:27)
[2017-01-20] MEDS: CLOPIDOGREL BISULFATE 75 MG TABLET (FP) PO SCH (10:27)
[2017-01-20] MEDS: predniSONE 5 MG TABLET (UD) PO SCH (10:27)
--- NOTE | 2017-01-20 19:00 | PN ---
Progress Note (short form) - Note Progress Note: Active Medications Acetaminophen (Tylenol -) 650 mg PO Q6H PRN PRN Reason: FEVER OR PAIN Amino Acids (Prosource No Carb Liquid Pkt) 30 ml PO BID@0800,1730 [facility] Clopidogrel Bisulfate (Plavix -) 75 mg PO DAILY [facility] Last Admin: 01/20/17 10:27 Dose: 75 mg Levothyroxine Sodium (Synthroid -) 50 mcg PO DAILY@0700 [facility] Last Admin: 01/20/17 06:56 Dose: 50 mcg Metoprolol Succinate (Toprol Xl -) 12.5 mg PO DAILY [facility] Last Admin: 01/20/17 10:27 Dose: 12.5 mg Prednisone (Deltasone -) 5 mg PO DAILY [facility] Last Admin: 01/20/17 10:27 Dose: 5 mg Senna (Senna -) 2 tab PO HS [facility] Last Admin: 01/19/17 22:54 Dose: 2 tab Laboratory Results - last 24 hr 01/17/17 01/17/17 01/18/17 06:10 06:10 06:20 WBC RBC Hgb Hct MCV MCH MCHC RDW Plt Count MPV ESR Iron TIBC Iron Saturation Prot Electrophoresis Serum Total Protein 5.4 L Albumin 2.3 L Globulin 3.1 Albumin/Globulin Ratio 0.7 Nfoha-1-Wkjrebjwe 0.3 Bhzic-0-Dsgvmpzju 1.0 Beta Globulins 0.9 Gamma Globulins 0.9 Carcinoembryonic Ag ELEUTERIO M-Soy Rheumatoid Arth Biomark 10.9 MONICA Screen Positive H MONICA Homogeneous Pattern 1:80 MONICA Nucleolar Pattern TNP MONICA Speckled Pattern TNP MONICA Centromere Pattern TNP Tot Complement (CH50) > 65 H 01/19/17 01/19/17 01/20/17 06:00 09:40 07:08 WBC 7.4 RBC 3.49 L Hgb 10.6 L Hct 31.9 L MCV 91.3 MCH 30.3 MCHC 33.2 RDW 14.4 Plt Count 486 H MPV 7.3 L ESR 33 H Iron 28 TIBC 162 L Iron Saturation 17 Prot Electrophoresis Serum Total Protein Albumin Globulin Albumin/Globulin Ratio Eiuok-2-Dveldnfyi Kxsdm-1-Mmrowhywf Beta Globulins Gamma Globulins Carcinoembryonic Ag 1.4 ELEUTERIO M-Soy Rheumatoid Arth Biomark MONICA Screen MONICA Homogeneous Pattern MONICA Nucleolar Pattern MONICA Speckled Pattern MONICA Centromere Pattern Tot Complement (CH50) Vital Signs Temperature 97.9 F 01/20/17 14:54 Pulse Rate 68 01/20/17 14:54 Respiratory Rate 17 01/20/17 14:54 Blood Pressure 138/53 01/20/17 14:54 O2 Sat by Pulse Oximetry (%) 97 01/20/17 09:00 CC: feels a bit better, and has ambulated w/ PT ```````````````` skin--no acute lesions heart--distant RR lungs--bilat distant BS abd--RUQ tenderness; no rebound neuro--alert; coherent; speech is clear; responds appropriately; moves all E ```````````````````````````` Summ > protein calorie--malnutrition; various causes; has low protein and is eating poorly likely 2nd underlying "inflammatory" process PLAN: add prostat > cough--non acute, mild; not new; moist for which she was Rx'd Zithromax in late november 2016 by PCP, CXR not remarkable. 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 echo negative; RF negative; SPEP negative; CEA negative, CH50 high; but has (+) MONICA of 1: 80; pattern pending PLAN: started back on low dose prednisone and ESR has come down considerably; Rheum consult ordered >Anemia--mild; will repeat, check Ferrtin level; stool for OB negative. 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 ~~~~~~~~~~~~~~~ dr Yeung Problem List - Problems (1) Weakness Code(s): R53.1 - WEAKNESS (2) Pain localized to upper abdomen Code(s): R10.10 - UPPER ABDOMINAL PAIN, UNSPECIFIED (3) Cough Code(s): R05 - COUGH (4) UTI (urinary tract infection) Code(s): N39.0 - URINARY TRACT INFECTION, SITE NOT SPECIFIED Qualifiers: Urinary tract infection type: site unspecified Hematuria presence: without hematuria Qualified Code(s): N39.0 - Urinary tract infection, site not specified (5) ESR raised Code(s): R70.0 - ELEVATED ERYTHROCYTE SEDIMENTATION RATE (6) Atrial fibrillation Code(s): I48.91 - UNSPECIFIED ATRIAL FIBRILLATION Qualifiers: Atrial fibrillation type: unspecified Qualified Code(s): I48.91 - Unspecified atrial fibrillation (7) Hypothyroid Code(s): E03.9 - HYPOTHYROIDISM, UNSPECIFIED Qualifiers: Hypothyroidism type: unspecified Qualified Code(s): E03.9 - Hypothyroidism, unspecified (8) History of TIA (transient ischemic attack) Code(s): Z86.73 - PRSNL HX OF TIA (TIA), AND CEREB INFRC W/O RESID DEFICITS (9) Failure to thrive in adult Code(s): R62.7 - ADULT FAILURE TO THRIVE
[2017-01-20] MEDS: SENNOSIDES 8.6MG TABLET (FP) PO SCH ×2 (21:26→21:30)
[2017-01-21] MEDS: LEVOTHYROXINE NA 50 MCG TABLET (FP) PO SCH (06:39)
[2017-01-21 07:38] LABS: MCH 30.6 pg (25.7-33.7); MCHC 33.5 g/dl (32.0-36.0); MEAN CELL VOLUME 91.2 fl (80-96); MEAN PLT VOLUME 7.2 fl (7.5-11.1); PLATELET COUNT 507 K/MM3 (134-434); RDW 14.5 % (11.6-15.6); WHITE BLOOD COUNT 7.6 K/mm3 (4.0-10.0)
[2017-01-21] MEDS: AMINO ACIDS/PROTEIN HYDROLYS 30 ML LIQUID.PKT PO SCH ×2 (08:09→18:05)
[2017-01-21 08:11] LABS: CALCIUM 9.3 mg/dL (8.5-10.1)
[2017-01-21 08:19] LABS: ANION GAP 5 (8-16); CO2 31 mmol/L (21-32); CREATININE 0.8 mg/dL (0.55-1.02); FERRITIN 54.207 ng/ml (6.9-282.5); GLUCOSE,RANDOM 78 mg/dL (74-106)
--- NOTE | 2017-01-21 10:36 | CONSULT ---
Consult Consult Specialty:: Rheumatology - History of Present Illness History of Present Illness: 86 year old female with with a PMH of HTN, hypothyroidism,Atrial fibrillation, S /P TIA, admitted with history of headaches, jaw pain, arthralgia in sghoulders and hips, general malaise, weakness and was found to have an elevated ESR. HPUI> The patient reports a 4 week history of headaches in bilateral temporal regions accompanied by pain in the TMJ region, jaw pain and jaw claudication. She also reports mild pain in both shoulders and both hips. She denies other joitn involvement. Recently she has had significant weakness and failure to thrive. On admission laboratory work-up revealed ESR 40, CRP 8.0 MONCIA 1:80 and CH50 > 65. On 01/19/17 she was started on Prednisone 5 mg/d. Since then she has been feeling better and ESR on 01/20/17 was 33. At the prersent time she feels better , headache improved partially and she has mild arthralgia. 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) Cardio/Vascular: Yes: AFIB (intermittent) Pulmonary: Yes: Other (unexplained cough) ...: No Musculoskeletal: Yes: Other (generalized aches and pains, but c/o bilat jaw pains, R>L) Endocrine: Yes: Hypothyroidism - Past Surgical History Past Surgical History: Yes: Breast Biopsy, Cholecystectomy - Alcohol/Substance Use Hx Alcohol Use: No History of Substance Use: reports: None - Smoking History Smoking history: Never smoked - Social History ADL: Independent 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 History of Recent Travel: No Home Medications - Allergies Allergies/Adverse Reactions: Allergies Allergy/AdvReac Type Severity Reaction Status Date / Time No Known Allergies Allergy Verified 01/03/17 14:22 - Home Medications Home Medications: Ambulatory Orders Aspirin [ASA -] 81 mg PO DAILY 01/03/17 Clopidogrel Bisulfate [Plavix -] 75 mg PO DAILY 01/03/17 Levothyroxine Sodium [Unithroid] 50 mcg PO DAILY 01/03/17 Metoprolol Tartrate [Lopressor -] 25 mg PO BID 01/03/17 Review of Systems - Review of Systems Constitutional: reports: Weakness Eyes: reports: No Symptoms HENT: reports: No Symptoms Neck: reports: No Symptoms Cardiovascular: reports: No Symptoms Respiratory: reports: No Symptoms Gastrointestinal: reports: No Symptoms Genitourinary: reports: No Symptoms Musculoskeletal: reports: Other (See HPI) Integumentary: reports: No Symptoms Neurological: reports: Headache Physical Exam Vital Signs: Vital Signs Temperature 98.0 F 01/21/17 05:00 Pulse Rate 69 01/21/17 05:00 Respiratory Rate 20 01/21/17 05:00 Blood Pressure 136/53 01/21/17 05:00 O2 Sat by Pulse Oximetry (%) 96 01/20/17 21:00 Constitutional: Yes: Mild Distress Eyes: Yes: WNL HENT: Yes: WNL Neck: Yes: WNL Cardiovascular: Yes: WNL Respiratory: Yes: WNL Gastrointestinal: Yes: WNL ...Rectal Exam: Yes: WNL Renal/: Yes: WNL Musculoskeletal: Yes: Other (Mild tenderness in both shoulders,mainly over the grater tuberosity on extension of the joint suggestive of rotator cuff tendonitis (as seen in PMR). Mild tenderness in both hips. No other active joints. Temporal arteries normal in ulsation and consistency.) Labs: CBC, BMP 01/21/17 05:35 01/21/17 05:35 Laboratory Tests 01/14/17 01/14/17 01/17/17 14:51 14:51 06:10 ESR 80 H C-Reactive Protein 8.0 H Rheumatoid Arth Biomark 10.9 MONICA Screen Positive H MONICA Homogeneous Pattern 1:80 Tot Complement (CH50) 01/17/17 01/20/17 06:10 07:08 ESR 33 H C-Reactive Protein Rheumatoid Arth Biomark MONICA Screen MONICA Homogeneous Pattern Tot Complement (CH50) > 65 H Problem List - Problems (1) Temporal arteritis Assessment/Plan: Rule out temporal arteritis. The elevated CH50 reflects the presence of acute phase reactants and she probably has a false positive MONICA at a low titer. The patient is improving with low dose steroids. I suggest to increase Prednisone to 60 mg/d and obtain a temporal artery biopsy. I will discuss the case with Dr. Yeung. Code(s): M31.6 - OTHER GIANT CELL ARTERITIS
[2017-01-21] MEDS: CLOPIDOGREL BISULFATE 75 MG TABLET (FP) PO SCH (11:08)
[2017-01-21] MEDS: METOPROLOL SUCCINATE 25 MG TAB.SR.24H (FP) PO SCH (11:08)
[2017-01-21] MEDS: predniSONE 5 MG TABLET (UD) PO SCH (11:08)
[2017-01-21] MEDS: predniSONE 20 MG TABLET (UD) PO SCH (11:42)
--- NOTE | 2017-01-21 17:24 | PN ---
Progress Note (short form) - Note Progress Note: Current Medications Acetaminophen (Tylenol -) 650 mg PO Q6H PRN PRN Reason: FEVER OR PAIN Amino Acids (Prosource No Carb Liquid Pkt) 30 ml PO BID@0800,1730 [facility] Last Admin: 01/21/17 08:09 Dose: 30 ml Clopidogrel Bisulfate (Plavix -) 75 mg PO DAILY [facility] Last Admin: 01/21/17 11:08 Dose: 75 mg Levothyroxine Sodium (Synthroid -) 50 mcg PO DAILY@0700 [facility] Last Admin: 01/21/17 06:39 Dose: 50 mcg Metoprolol Succinate (Toprol Xl -) 12.5 mg PO DAILY [facility] Last Admin: 01/21/17 11:08 Dose: 12.5 mg Prednisone (Deltasone -) 60 mg PO DAILY [facility] Last Admin: 01/21/17 11:42 Dose: 60 mg Senna (Senna -) 2 tab PO HS [facility] Last Admin: 01/20/17 21:30 Dose: 2 tab Laboratory Results - last 24 hr 01/21/17 01/21/17 01/21/17 05:35 05:35 05:35 WBC 7.6 RBC 3.68 Hgb 11.3 Hct 33.6 MCV 91.2 MCH 30.6 MCHC 33.5 RDW 14.5 Plt Count 507 H MPV 7.2 L Sodium 140 Potassium 4.1 Chloride 104 Carbon Dioxide 31 Anion Gap 5 L BUN 21 H D Creatinine 0.8 Random Glucose 78 D Calcium 9.3 Ferritin 54.207 Cancelled Vital Signs Temperature 99.8 F H 01/21/17 15:41 Pulse Rate 70 01/21/17 15:41 Respiratory Rate 12 01/21/17 15:41 Blood Pressure 128/66 01/21/17 15:41 O2 Sat by Pulse Oximetry (%) 96 01/20/17 21:00 CC: felt a bit dizzy post getting higher dose of prednisone ```````````````` skin--no acute lesions heart--distant RR lungs--bilat distant BS abd--RUQ tenderness; no rebound neuro--alert; coherent; speech is clear; responds appropriately; moves all E ```````````````````````````` Summ > protein calorie--malnutrition; various causes; has low protein and is eating poorly likely 2nd underlying "inflammatory" process PLAN: add prostat > cough--non acute, mild; not new; moist for which she was Rx'd Zithromax in late november 2016 by PCP, CXR not remarkable. > High ESR--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 ~~~~~~~~~~~~~~~ dr Yeung Problem List - Problems (1) Weakness Code(s): R53.1 - WEAKNESS (2) Pain localized to upper abdomen Code(s): R10.10 - UPPER ABDOMINAL PAIN, UNSPECIFIED (3) Cough Code(s): R05 - COUGH (4) UTI (urinary tract infection) Code(s): N39.0 - URINARY TRACT INFECTION, SITE NOT SPECIFIED Qualifiers: Urinary tract infection type: site unspecified Hematuria presence: without hematuria Qualified Code(s): N39.0 - Urinary tract infection, site not specified (5) ESR raised Code(s): R70.0 - ELEVATED ERYTHROCYTE SEDIMENTATION RATE (6) Atrial fibrillation Code(s): I48.91 - UNSPECIFIED ATRIAL FIBRILLATION Qualifiers: Atrial fibrillation type: unspecified Qualified Code(s): I48.91 - Unspecified atrial fibrillation (7) Hypothyroid Code(s): E03.9 - HYPOTHYROIDISM, UNSPECIFIED Qualifiers: Hypothyroidism type: unspecified Qualified Code(s): E03.9 - Hypothyroidism, unspecified (8) History of TIA (transient ischemic attack) Code(s): Z86.73 - PRSNL HX OF TIA (TIA), AND CEREB INFRC W/O RESID DEFICITS (9) Failure to thrive in adult Code(s): R62.7 - ADULT FAILURE TO THRIVE
--- NOTE | 2017-01-21 20:20 | CONSULT ---
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 Travel: No Home Medications - Allergies Allergies/Adverse Reactions: Allergies Allergy/AdvReac Type Severity Reaction Status Date / Time No Known Allergies Allergy Verified 01/03/17 14:22 - Home Medications Home Medications: Ambulatory Orders Aspirin [ASA -] 81 mg PO DAILY 01/03/17 Clopidogrel Bisulfate [Plavix -] 75 mg PO DAILY 01/03/17 Levothyroxine Sodium [Unithroid] 50 mcg PO DAILY 01/03/17 Metoprolol Tartrate [Lopressor -] 25 mg PO BID 01/03/17 Physical Exam Vital Signs: Vital Signs Temperature 97.6 F 01/21/17 19:00 Pulse Rate 69 01/21/17 19:00 Respiratory Rate 16 01/21/17 19:00 Blood Pressure 131/54 01/21/17 19:00 O2 Sat by Pulse Oximetry (%) 96 01/21/17 09:00 Labs: CBC, BMP 01/21/17 05:35 01/21/17 05:35 Assessment/Plan VAscular Surgery Pt seen and examined. Had dizziness with right sided blurry vision and head aches. Pt with elevated ESR. Will do right temporal artery biopsy in am. Lisandro Avery DO
[2017-01-21] MEDS: SENNOSIDES 8.6MG TABLET (FP) PO SCH (22:20)
[2017-01-22] MEDS: LEVOTHYROXINE NA 50 MCG TABLET (FP) PO SCH (07:00)
[2017-01-22] MEDS: AMINO ACIDS/PROTEIN HYDROLYS 30 ML LIQUID.PKT PO SCH ×2 (08:25→17:00)
[2017-01-22] MEDS: METOPROLOL SUCCINATE 25 MG TAB.SR.24H (FP) PO SCH (09:40)
[2017-01-22] MEDS: predniSONE 20 MG TABLET (UD) PO SCH (09:40)
[2017-01-22] MEDS: CLOPIDOGREL BISULFATE 75 MG TABLET (FP) PO SCH ×3 (09:41→10:32)
--- NOTE | 2017-01-22 12:20 | PN ---
Progress Note (short form) - Note Progress Note: Current Medications Acetaminophen (Tylenol -) 650 mg PO Q6H PRN PRN Reason: FEVER OR PAIN Amino Acids (Prosource No Carb Liquid Pkt) 30 ml PO BID@0800,1730 [facility] Last Admin: 01/22/17 08:25 Dose: 30 ml Clopidogrel Bisulfate (Plavix -) 75 mg PO DAILY [facility] Last Admin: 01/22/17 10:32 Dose: 75 mg Levothyroxine Sodium (Synthroid -) 50 mcg PO DAILY@0700 [facility] Last Admin: 01/22/17 07:00 Dose: 50 mcg Metoprolol Succinate (Toprol Xl -) 12.5 mg PO DAILY [facility] Last Admin: 01/22/17 09:40 Dose: 12.5 mg Prednisone (Deltasone -) 60 mg PO DAILY [facility] Last Admin: 01/22/17 09:40 Dose: 60 mg Senna (Senna -) 2 tab PO HS [facility] Last Admin: 01/21/17 22:20 Dose: Not Given Vital Signs Temperature 96.6 F L 01/22/17 09:36 Pulse Rate 62 01/22/17 09:36 Respiratory Rate 20 01/22/17 09:36 Blood Pressure 130/53 01/22/17 09:36 O2 Sat by Pulse Oximetry (%) 96 01/21/17 21:00 CC: feels okay ```````````````` skin--no acute lesions heart--distant RR lungs--bilat distant BS abd--RUQ tenderness; no rebound neuro--alert; coherent; speech is clear; responds appropriately; moves all E ```````````````````````````` Summ > protein calorie--malnutrition; various causes; has low protein and is eating poorly likely 2nd underlying "inflammatory" process PLAN: add prostat > High ESR--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 ~~~~~~~~~~~~~~~ dr Yeung Problem List - Problems (1) Weakness Code(s): R53.1 - WEAKNESS (2) Pain localized to upper abdomen Code(s): R10.10 - UPPER ABDOMINAL PAIN, UNSPECIFIED (3) Cough Code(s): R05 - COUGH (4) UTI (urinary tract infection) Code(s): N39.0 - URINARY TRACT INFECTION, SITE NOT SPECIFIED Qualifiers: Urinary tract infection type: site unspecified Hematuria presence: without hematuria Qualified Code(s): N39.0 - Urinary tract infection, site not specified (5) ESR raised Code(s): R70.0 - ELEVATED ERYTHROCYTE SEDIMENTATION RATE (6) Atrial fibrillation Code(s): I48.91 - UNSPECIFIED ATRIAL FIBRILLATION Qualifiers: Atrial fibrillation type: unspecified Qualified Code(s): I48.91 - Unspecified atrial fibrillation (7) Hypothyroid Code(s): E03.9 - HYPOTHYROIDISM, UNSPECIFIED Qualifiers: Hypothyroidism type: unspecified Qualified Code(s): E03.9 - Hypothyroidism, unspecified (8) History of TIA (transient ischemic attack) Code(s): Z86.73 - PRSNL HX OF TIA (TIA), AND CEREB INFRC W/O RESID DEFICITS (9) Failure to thrive in adult Code(s): R62.7 - ADULT FAILURE TO THRIVE
[2017-01-22] MEDS ORDERED: LIDOCAINE HCL 1%, 10 MG/ML (20ML VIAL) ONE (15:04)
[2017-01-22] MEDS ORDERED: PROPOFOL 20 ML ONE (15:51)
[2017-01-22] MEDS ORDERED: LIDOCAINE HCL/PF 2% SDV 5ML VIAL ONE (15:51)
[2017-01-22] MEDS ORDERED: ONDANSETRON 4 MG/2 ML VIAL IVPUSH PRN ×2 (16:19→17:29)
[2017-01-22] MEDS ORDERED: MIDAZOLAM HCL 2 MG/2 ML SINGLE DOSE VIAL ONE (16:23)
[2017-01-22] MEDS ORDERED: LACTATED RINGERS SOLUTION 1,000 ML IV SCH ×2 (16:30→17:29)
[2017-01-22] MEDS ORDERED: LIDOCAINE HCL 1%, 10 MG/ML (20ML VIAL) IJ ONE (16:38)
--- NOTE | 2017-01-22 17:16 | OP ---
Operative Note - Note: Operative Date: 01/22/17 Pre-Operative Diagnosis: r/o temporal arteritis Operation: right temporal artery biopsy Post-Operative Diagnosis: Same as Pre-op Surgeon: Lisandro Avery Anesthesia: Fractional Estimated Blood Loss (mls): 5 Operative Report Dictated: Yes
[2017-01-22] MEDS ORDERED: ACETAMINOPHEN 325 MG TABLET (FP) PO PRN (17:29)
[2017-01-22] MEDS ORDERED: PT OWN MED DRAWER 7, Y5N ONE (21:41)
[2017-01-22] MEDS: SENNOSIDES 8.6MG TABLET (FP) PO SCH (23:00)
[2017-01-22] MEDS: DEXTROSE 5%-0.45% SALINE 1,000 ML IV SCH (23:25)
[2017-01-23] MEDS: LEVOTHYROXINE NA 50 MCG TABLET (FP) PO SCH (06:32)
--- NOTE | 2017-01-23 09:16 | OP ---
DATE OF OPERATION: 01/22/2017 PREOPERATIVE DIAGNOSIS: Rule out temporal arteritis. POSTOPERATIVE DIAGNOSIS: Rule out temporal arteritis. PROCEDURE: Right temporal artery biopsy. SURGEON: Lisandro Tarango DO ANESTHESIA: Fractional. BLOOD LOSS: 5 mL INDICATION FOR PROCEDURE: The patient is an 86-year-old female who comes here with blurry vision and right-sided headaches. She has an elevated ESR. Rheumatology saw the patient and wanted to rule out temporal arteritis due to her symptoms. Patient was consented for the procedure, understanding all risks, benefits, and alternatives, then taken to the operating room. DESCRIPTION OF PROCEDURE: Once in the operative room, was laid on the operative table in supine manner and the area of the right temporal region was prepped and draped in a sterile surgical manner. We then felt for her temporal pulse, and using a skin marker, we brian a 4-cm incision. We then injected 10 mL of % over the incision. We then, using a 15 blade, made the 4-cm incision. Bovie electrocautery was used to control hemostasis, and we were able to get down through all the subcutaneous tissue, down to the fascia. We then dissected with Metzenbaum scissors and dissected out our temporal artery. Temporal artery was then dissected anteriorly and posteriorly, and using 4-0 silk, we were able to ligate the artery proximally and distally. The artery was then cut and removed and sent down to Pathology. The wound was then well irrigated; 3-0 Vicryl was used and the subcutaneous tissue was approximated in an interrupted manner and the skin was closed with 4-0 Biosyn in a subcuticular running fashion. Area was wet and dried. Two Steri-Strips were placed. The patient tolerated the procedure with no complication. Patient transferred to PACU in stable condition. LISANDRO TARANGO DO SAFETY ADMINISTRATOR/[id number]
[2017-01-23] MEDS: AMINO ACIDS/PROTEIN HYDROLYS 30 ML LIQUID.PKT PO SCH ×2 (09:39→18:56)
[2017-01-23] MEDS: METOPROLOL SUCCINATE 25 MG TAB.SR.24H (FP) PO SCH (09:41)
[2017-01-23] MEDS: predniSONE 20 MG TABLET (UD) PO SCH (09:41)
[2017-01-23] MEDS: CLOPIDOGREL BISULFATE 75 MG TABLET (FP) PO SCH ×2 (09:41→09:54)
--- NOTE | 2017-01-23 17:07 | PN ---
Progress Note (short form) - Note Progress Note: Current Medications Acetaminophen (Tylenol -) 650 mg PO Q6H PRN PRN Reason: FEVER OR PAIN Amino Acids (Prosource No Carb Liquid Pkt) 30 ml PO BID@0800,1730 [facility] Last Admin: 01/23/17 09:39 Dose: 30 ml Clopidogrel Bisulfate (Plavix -) 75 mg PO DAILY [facility] Last Admin: 01/23/17 09:54 Dose: 75 mg Dextrose/Sodium Chloride (D5-1/2ns -) 1,000 mls @ 50 mls/hr IV ASDIR [facility] Last Admin: 01/22/17 23:25 Dose: 50 mls/hr Levothyroxine Sodium (Synthroid -) 50 mcg PO DAILY@0700 [facility] Last Admin: 01/23/17 06:32 Dose: 50 mcg Metoprolol Succinate (Toprol Xl -) 12.5 mg PO DAILY [facility] Last Admin: 01/23/17 09:41 Dose: 12.5 mg Prednisone (Deltasone -) 60 mg PO DAILY [facility] Last Admin: 01/23/17 09:41 Dose: 60 mg Senna (Senna -) 2 tab PO HS [facility] Last Admin: 01/22/17 23:00 Dose: Not Given Vital Signs Temperature 97.8 F 01/23/17 15:27 Pulse Rate 60 01/23/17 15:27 Respiratory Rate 18 01/23/17 15:27 Blood Pressure 130/61 01/23/17 15:27 O2 Sat by Pulse Oximetry (%) 96 01/22/17 17:58 CC: mild pain Rt jehovah's witness area ```````````````` skin--dressing on Rt jehovah's witness heart--distant RR lungs--bilat distant BS abd--RUQ tenderness; no rebound neuro--alert; coherent; speech is clear; responds appropriately; moves all E ```````````````````````````` Summ > High ESR--apparently not new; now had Rt temp art Bx due to strong suspicion of Temp arteritis (as per Rheum) PLAN: on Prednisone for now > past CVA--by old MRI; 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 ~~~~~~~~~~~~~~~ dr Yeung Problem List - Problems (1) Weakness Code(s): R53.1 - WEAKNESS (2) Pain localized to upper abdomen Code(s): R10.10 - UPPER ABDOMINAL PAIN, UNSPECIFIED (3) Cough Code(s): R05 - COUGH (4) UTI (urinary tract infection) Code(s): N39.0 - URINARY TRACT INFECTION, SITE NOT SPECIFIED Qualifiers: Urinary tract infection type: site unspecified Hematuria presence: without hematuria Qualified Code(s): N39.0 - Urinary tract infection, site not specified (5) ESR raised Code(s): R70.0 - ELEVATED ERYTHROCYTE SEDIMENTATION RATE (6) Atrial fibrillation Code(s): I48.91 - UNSPECIFIED ATRIAL FIBRILLATION Qualifiers: Atrial fibrillation type: unspecified Qualified Code(s): I48.91 - Unspecified atrial fibrillation (7) Hypothyroid Code(s): E03.9 - HYPOTHYROIDISM, UNSPECIFIED Qualifiers: Hypothyroidism type: unspecified Qualified Code(s): E03.9 - Hypothyroidism, unspecified (8) History of TIA (transient ischemic attack) Code(s): Z86.73 - PRSNL HX OF TIA (TIA), AND CEREB INFRC W/O RESID DEFICITS (9) Failure to thrive in adult Code(s): R62.7 - ADULT FAILURE TO THRIVE
[2017-01-23] MEDS: SENNOSIDES 8.6MG TABLET (FP) PO SCH (23:02)
[2017-01-24] MEDS: DEXTROSE 5%-0.45% SALINE 1,000 ML IV SCH (06:14)
[2017-01-24] MEDS: LEVOTHYROXINE NA 50 MCG TABLET (FP) PO SCH (06:40)
[2017-01-24] MEDS: AMINO ACIDS/PROTEIN HYDROLYS 30 ML LIQUID.PKT PO SCH ×2 (08:17→17:31)
[2017-01-24 08:29] LABS: MCH 29.9 pg (25.7-33.7); MCHC 32.4 g/dl (32.0-36.0); MEAN CELL VOLUME 92.2 fl (80-96); MEAN PLT VOLUME 7.5 fl (7.5-11.1); PLATELET COUNT 467 K/MM3 (134-434); RDW 14.9 % (11.6-15.6); WHITE BLOOD COUNT 14.1 K/mm3 (4.0-10.0)
[2017-01-24 08:57] LABS: ANION GAP 9 (8-16); CALCIUM 8.6 mg/dL (8.5-10.1); CO2 27 mmol/L (21-32); GLUCOSE,RANDOM 101 mg/dL (74-106)
[2017-01-24 09:00] LABS: CREATININE 0.8 mg/dL (0.55-1.02)
[2017-01-24 10:05] LABS: ERYTHROCYTE SEDIMENTATION RATE 1 mm/hr (0-30)
[2017-01-24] MEDS ORDERED: PT OWN MED DRAWER 7, Y5N ONE (11:41)
[2017-01-24] MEDS: predniSONE 20 MG TABLET (UD) PO SCH (11:42)
[2017-01-24] MEDS: METOPROLOL SUCCINATE 25 MG TAB.SR.24H (FP) PO SCH (11:42)
[2017-01-24] MEDS: CLOPIDOGREL BISULFATE 75 MG TABLET (FP) PO SCH (11:42)
--- NOTE | 2017-01-24 12:35 | PN ---
Progress Note (short form) - Note Progress Note: Current Medications Acetaminophen (Tylenol -) 650 mg PO Q6H PRN PRN Reason: FEVER OR PAIN Amino Acids (Prosource No Carb Liquid Pkt) 30 ml PO BID@0800,1730 [facility] Last Admin: 01/24/17 08:17 Dose: 30 ml Clopidogrel Bisulfate (Plavix -) 75 mg PO DAILY [facility] Last Admin: 01/24/17 11:42 Dose: 75 mg Dextrose/Sodium Chloride (D5-1/2ns -) 1,000 mls @ 50 mls/hr IV ASDIR [facility] Last Admin: 01/24/17 06:14 Dose: 50 mls/hr Levothyroxine Sodium (Synthroid -) 50 mcg PO DAILY@0700 [facility] Last Admin: 01/24/17 06:40 Dose: 50 mcg Metoprolol Succinate (Toprol Xl -) 12.5 mg PO DAILY [facility] Last Admin: 01/24/17 11:42 Dose: 12.5 mg Prednisone (Deltasone -) 60 mg PO DAILY [facility] Last Admin: 01/24/17 11:42 Dose: 60 mg Senna (Senna -) 2 tab PO HS [facility] Last Admin: 01/23/17 23:02 Dose: Not Given Laboratory Results - last 24 hr 01/24/17 01/24/17 07:35 07:35 WBC 14.1 H D RBC 3.54 L Hgb 10.6 L Hct 32.6 MCV 92.2 MCH 29.9 MCHC 32.4 RDW 14.9 Plt Count 467 H MPV 7.5 ESR 1 Sodium 141 Potassium 3.9 Chloride 105 Carbon Dioxide 27 Anion Gap 9 BUN 33 H D Creatinine 0.8 Random Glucose 101 D Calcium 8.6 Vital Signs Temperature 97.2 F L 01/24/17 06:00 Pulse Rate 56 L 01/24/17 06:00 Respiratory Rate 18 01/24/17 06:00 Blood Pressure 148/56 01/24/17 06:00 O2 Sat by Pulse Oximetry (%) 97 01/23/17 21:00 CC: feels okay ```````````````` skin--dressing on Rt taoist; IV site clean heart--distant RR lungs--bilat distant BS abd--RUQ tenderness; no rebound neuro--alert; coherent; speech is clear; responds appropriately; moves all E ```````````````````````````` Summ > High ESR--now had Rt temp art Bx due to strong suspicion of Temp arteritis ( as per Rheum) PLAN: await Bx report; on Prednisone for now > Leukocytosis--without clinical signs suggesting acute infection; very likely due to steroid > past CVA--by old MRI; 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 ~~~~~~~~~~~~~~~ dr Yeung Problem List - Problems (1) Weakness Code(s): R53.1 - WEAKNESS (2) Pain localized to upper abdomen Code(s): R10.10 - UPPER ABDOMINAL PAIN, UNSPECIFIED (3) Cough Code(s): R05 - COUGH (4) UTI (urinary tract infection) Code(s): N39.0 - URINARY TRACT INFECTION, SITE NOT SPECIFIED Qualifiers: Urinary tract infection type: site unspecified Hematuria presence: without hematuria Qualified Code(s): N39.0 - Urinary tract infection, site not specified (5) ESR raised Code(s): R70.0 - ELEVATED ERYTHROCYTE SEDIMENTATION RATE (6) Atrial fibrillation Code(s): I48.91 - UNSPECIFIED ATRIAL FIBRILLATION Qualifiers: Atrial fibrillation type: unspecified Qualified Code(s): I48.91 - Unspecified atrial fibrillation (7) Hypothyroid Code(s): E03.9 - HYPOTHYROIDISM, UNSPECIFIED Qualifiers: Hypothyroidism type: unspecified Qualified Code(s): E03.9 - Hypothyroidism, unspecified (8) History of TIA (transient ischemic attack) Code(s): Z86.73 - PRSNL HX OF TIA (TIA), AND CEREB INFRC W/O RESID DEFICITS (9) Failure to thrive in adult Code(s): R62.7 - ADULT FAILURE TO THRIVE
[2017-01-24] MEDS: SENNOSIDES 8.6MG TABLET (FP) PO SCH (21:49)
[2017-01-25] MEDS: LEVOTHYROXINE NA 50 MCG TABLET (FP) PO SCH (06:17)
[2017-01-25] MEDS: DEXTROSE 5%-0.45% SALINE 1,000 ML IV SCH ×2 (06:17→23:22)
[2017-01-25] MEDS: AMINO ACIDS/PROTEIN HYDROLYS 30 ML LIQUID.PKT PO SCH ×2 (08:45→18:15)
[2017-01-25] MEDS: CLOPIDOGREL BISULFATE 75 MG TABLET (FP) PO SCH (10:21)
[2017-01-25] MEDS: predniSONE 20 MG TABLET (UD) PO SCH (10:21)
[2017-01-25] MEDS: METOPROLOL SUCCINATE 25 MG TAB.SR.24H (FP) PO SCH (10:22)
[2017-01-25] MEDS: SENNOSIDES 8.6MG TABLET (FP) PO SCH (21:14)
--- NOTE | 2017-01-25 23:50 | PN ---
Progress Note, Physician History of Present Illness: coverage for , She feels better Has been able to walk with help. Denies headache or change in vision - Current Medication List Current Medications: Active Medications Acetaminophen (Tylenol -) 650 mg PO Q6H PRN PRN Reason: FEVER OR PAIN Amino Acids (Prosource No Carb Liquid Pkt) 30 ml PO BID@0800,1730 [facility] Last Admin: 01/25/17 18:15 Dose: 30 ml Clopidogrel Bisulfate (Plavix -) 75 mg PO DAILY [facility] Last Admin: 01/25/17 10:21 Dose: 75 mg Dextrose/Sodium Chloride (D5-1/2ns -) 1,000 mls @ 50 mls/hr IV ASDIR [facility] Last Admin: 01/25/17 23:22 Dose: 50 mls/hr Levothyroxine Sodium (Synthroid -) 50 mcg PO DAILY@0700 [facility] Last Admin: 01/25/17 06:17 Dose: 50 mcg Metoprolol Succinate (Toprol Xl -) 12.5 mg PO DAILY [facility] Last Admin: 01/25/17 10:22 Dose: 12.5 mg Prednisone (Deltasone -) 60 mg PO DAILY [facility] Last Admin: 01/25/17 10:21 Dose: 60 mg Senna (Senna -) 2 tab PO HS [facility] Last Admin: 01/25/17 21:14 Dose: 1 tab - Objective Vital Signs: Vital Signs Temperature 97.7 F 01/25/17 19:00 Pulse Rate 57 L 01/25/17 19:00 Respiratory Rate 18 01/25/17 19:00 Blood Pressure 132/62 01/25/17 19:00 O2 Sat by Pulse Oximetry (%) 99 01/25/17 09:00 Constitutional: Yes: No Distress, Calm Eyes: Yes: Conjunctiva Clear, EOM Intact HENT: Yes: WNL Neck: Yes: Supple Cardiovascular: Yes: Regular Rate and Rhythm, S1, S2 Respiratory: Yes: Regular, CTA Bilaterally Gastrointestinal: Yes: Normal Bowel Sounds, Soft Genitourinary: Yes: WNL Musculoskeletal: Yes: Joint Stiffness Extremities: Yes: WNL Edema: No Peripheral Pulses WNL: Yes Integumentary: Yes: WNL Neurological: Yes: Alert, Oriented ...Motor Strength: WNL Psychiatric: Yes: Alert, Oriented Labs: CBC, BMP 01/24/17 07:35 01/24/17 07:35 INR, PTT INR 1.14 (0.82-1.09) 01/14/17 14:51 Problem List - Problems (1) Failure to thrive in adult Code(s): R62.7 - ADULT FAILURE TO THRIVE (2) Anemia Assessment/Plan: borderline anemia of chronic disease, stable Code(s): D64.9 - ANEMIA, UNSPECIFIED (3) Temporal arteritis Assessment/Plan: Has responded well to steroids Code(s): M31.6 - OTHER GIANT CELL ARTERITIS Assessment/Plan IMP:Temporal arteritis Plan :Continue steroids. Await biopsy results
[2017-01-26] MEDS: LEVOTHYROXINE NA 50 MCG TABLET (FP) PO SCH (06:41)
[2017-01-26] MEDS: AMINO ACIDS/PROTEIN HYDROLYS 30 ML LIQUID.PKT PO SCH ×2 (08:12→17:23)
[2017-01-26 09:44] VITALS: TEMP 97.9
[2017-01-26] MEDS: predniSONE 20 MG TABLET (UD) PO SCH (09:54)
[2017-01-26] MEDS: METOPROLOL SUCCINATE 25 MG TAB.SR.24H (FP) PO SCH (09:55)
[2017-01-26] MEDS: CLOPIDOGREL BISULFATE 75 MG TABLET (FP) PO SCH (13:24)
--- NOTE | 2017-01-26 14:06 | EKG ---
Test Reason : Blood Pressure : / mmHG Vent. Rate : 053 BPM Atrial Rate : 053 BPM P-R Int : 128 ms QRS Dur : 076 ms QT Int : 416 ms P-R-T Axes : 057 -27 017 degrees QTc Int : 390 ms SINUS BRADYCARDIA NONSPECIFIC T WAVE ABNORMALITY ABNORMAL ECG WHEN COMPARED WITH ECG OF 14-JAN-2017 14:39, NO SIGNIFICANT CHANGE WAS FOUND Confirmed by BERNARDO WATSON MD ([id number]) on 01/26/2017 2:06:26 PM Referred By: BALTA GARCIA Confirmed By:BERNARDO WATSON MD
--- NOTE | 2017-01-26 14:10 | PATH ---
Surgical Pathology Report Patient Name: JAIR ROSE Med. Rec. #: [id number] /Age/Gender: 1930 (Age: 86) / F Account: [id number] Location: [address] [place] [address]/[facility] Taken: 01/23/2017 Received: 01/23/2017 Reported: 01/26/2017 Physicians: Lisandro Avery Specimen(s) Received RIGHT TEMPORAL ARTERY BIOPSY Clinical History Temporal headache/weakness Final Diagnosis RIGHT TEMPORAL ARTERY, BIOPSY: MUSCULAR ARTERY WITH FOCAL MEDIAL CALCIFICATION. NO ARTERITIS IDENTIFIED. Electronically Signed Valentín Wilson M.D. Gross Description Received in formalin labeled "right temporal artery biopsy," is a 1.3 cm in length x 0.1 cm in diameter portion of vasculature, consistent with a temporal artery biopsy. The specimen is sectioned and entirely submitted in one cassette. /01/23/201701/23/2017
[2017-01-26 14:58] VITALS: BP 133/69; PULSE 54
--- NOTE | 2017-01-26 15:06 | DS ---
Physical Examination Vital Signs: Vital Signs Temperature 97.9 F 01/26/17 14:48 Pulse Rate 54 L 01/26/17 14:48 Respiratory Rate 18 01/26/17 14:48 Blood Pressure 133/69 01/26/17 14:48 O2 Sat by Pulse Oximetry (%) 95 01/25/17 21:00 Constitutional: Yes: Well Nourished, No Distress, Calm Eyes: Yes: Conjunctiva Clear HENT: Yes: Atraumatic, Normocephalic Neck: Yes: Supple Cardiovascular: Yes: Bradycardia Respiratory: Yes: Regular Gastrointestinal: Yes: Soft Musculoskeletal: Yes: WNL Extremities: Yes: WNL Edema: No Integumentary: Yes: WNL Neurological: Yes: Alert, Oriented ...Motor Strength: WNL Psychiatric: Yes: Oriented Labs: CBC, BMP 01/24/17 07:35 01/24/17 07:35 Discharge Summary Reason For Visit: altered mental status Current Active Problems Altered mental status (Acute) Anemia (Acute) headaches Atrial fibrillation (Acute) ESR raised (Acute) Failure to thrive in adult (Acute) History of TIA (transient ischemic attack) (Acute) Hypothyroid (Acute) Pain localized to upper abdomen (Acute) bacturia microscopic hematuria Weakness (Acute) leukocytosis positive MONICA bradycardia Procedures: Principal: temporal artery biopsy Hospital Course: arrived into ED about 1 week after she was seen & d/cd from the ED for weakness. She was found to be listless and weak; she was hydrated. Labs showed some bacturia, and a very high ESR and CRP. Exam revealed RUQ tenderness, and bilat Temp headaches; w/u was negative for infection, endocarditis, GB and liver /renal disease. UA showed microscopic blood but US not revealing of any remarkable lesions. AM cortisol level was WNL as was the TSH. She was placed on low dose steroids with significant drop in the ESR; she was seen by Rheumatology who advised Temp art Bx which was done and was read as "negative" for Temp arteritis. Her WBC was a bit high but only after the dose of steroid was raised to 60mg. She improved clinically and was not acutely toxic or ill appearing. she was able to stand and ambulate on her own accord. The plan was to d/c her back home with VNS in place. Condition: Improved - Instructions Diet, Activity, Other Instructions: low salt diet avoid excessive heat; and any strenuous activity drink plenty of fluids Referrals: Clinton Yeung MD [Staff Physician] - Feliz Loza [Primary Care Provider] - Disposition: [facility]/HOME HEALTH CARE - Home Medications Comprehensive Discharge Medication List: Ambulatory Orders Aspirin [ASA -] 81 mg PO DAILY 01/03/17 Clopidogrel Bisulfate [Plavix -] 75 mg PO DAILY tablet 01/26/17 Levothyroxine [Synthroid -] 50 mcg PO DAILY@0700 tablet 01/26/17 Metoprolol Succinate [Toprol Xl -] 25 mg PO DAILY #7 tab.sr.24h 01/26/17 Prednisone [Deltasone -] 40 mg PO UTDICT #1 tablet 01/26/17
[2017-01-27] MEDS ORDERED: predniSONE 20 MG TABLET (UD) PO ONE (09:00)
== END 2017-01-26 18:32 | disposition home health service (06) | DRG 629 ==
LOC: JER 14:07 → JERBED 21:54 → J5S 01-15 04:13
PROVIDERS: ADMIT Internal Medicine; ATTEND Internal Medicine
PROC: 03BS0ZX Excision of Right Temporal Artery, Open Approach, Diagnostic (ICD-10-PCS; principal; 2017-01-22 16:30)
DX: R62.7 Adult failure to thrive (principal); E46 Unspecified protein-calorie malnutrition; Z68.1 Body mass index [BMI] 19.9 or less, adult; D64.9 Anemia, unspecified; R51 Headache; D72.829 Elevated white blood cell count, unspecified; R31.29 Other microscopic hematuria; E03.9 Hypothyroidism, unspecified; Z86.73 Personal history of transient ischemic attack (TIA), and cerebral infarction without residual deficits; I48.91 Unspecified atrial fibrillation; R41.82 Altered mental status, unspecified; R53.1 Weakness
CPT/HCPCS: 36415; 70330-TC; 70450-TC; 71010-TC; 76700-TC; 76856-TC; 80048; 80053; 81003; 81015; 82272; 82378; 82533; 82550; 82607; 82728; 83540; 83550; 83605; 83615; 83690; 83735; 84155; 84165; 84439; 84443; 84484; 85025; 85027; 85610; 85651; 86038; 86140; 86162; 86431; 87040; 87086; 88305-TC; 93005; 93010; 93306-TC; 94010; 94760; 97116-GP; 97161-GP; 99284-25

== ENCOUNTER 2017-12-01 07:27 | Day surgery (SDC) | payer OTHER, BC ==
[2017-11-30 10:25] VITALS: BMI 18.3
[~2017-12-01 07:27] MED LIST: CHONDROITIN SU A/HYALUR SOD 1 KIT IO ONE; EPINEPHrine/PF 1 MG/1 ML (1:1,000) AMPULE SQ ONE; LIDOCAINE HCL 1% PRESERVATIVE FREE - 30ML VIAL IO ONE; LIDOCAINE HCL 4% TOPICAL SOLN (50 ML/BOTTLE) TP ONE; POVIDONE-IODINE 5% OPHTHALMIC PREP 30 ML SOLUTION OS ONE
[2017-12-01] MEDS ORDERED: TROPICAMIDE 1% OPHTH SOLN 15 ML BOTTLE ONE (07:56)
[2017-12-01] MEDS ORDERED: CYCLOPENTOLATE HCL 1% OPHTH SOLN 2 ML BOTTLE ONE (07:56)
[2017-12-01] MEDS ORDERED: PHENYLEPHRINE 2.5% OPHTH SOLN 15 ML BOTTLE ONE (07:56)
[2017-12-01] MEDS ORDERED: FLURBIPROFEN 0.03% OPHTH SOLN 2.5 ML BOTTLE ONE (07:56)
[2017-12-01 08:18] VITALS: TEMP 98.5
[2017-12-01] MEDS ORDERED: MIDAZOLAM HCL 2 MG/2 ML SINGLE DOSE VIAL ONE (08:57)
[2017-12-01] MEDS ORDERED: TROPICAMIDE 1% OPHTH SOLN 15 ML BOTTLE OP SCH (09:00)
[2017-12-01] MEDS ORDERED: PHENYLEPHRINE 2.5% OPHTH SOLN 15 ML BOTTLE OP SCH (09:00)
[2017-12-01] MEDS ORDERED: CYCLOPENTOLATE HCL 1% OPHTH SOLN 2 ML BOTTLE OP SCH (09:00)
[2017-12-01] MEDS ORDERED: FLURBIPROFEN 0.03% OPHTH SOLN 2.5 ML BOTTLE OP SCH (09:00)
[2017-12-01] MEDS ORDERED: CIPROFLOXACIN HCL 0.3% OPHTH 2.5ML BOTTLE OP SCH (09:00)
[2017-12-01] MEDS ORDERED: LIDOCAINE HCL 4% TOPICAL SOLN (50 ML/BOTTLE) TP ONE (09:12)
[2017-12-01] MEDS ORDERED: POVIDONE-IODINE 5% OPHTHALMIC PREP 30 ML SOLUTION OS ONE (09:12)
[2017-12-01] MEDS ORDERED: CHONDROITIN SU A/HYALUR SOD 1 KIT IO ONE (09:16)
[2017-12-01] MEDS ORDERED: LIDOCAINE HCL 1% PRESERVATIVE FREE - 30ML VIAL IO ONE (09:16)
[2017-12-01] MEDS ORDERED: EPINEPHrine/PF 1 MG/1 ML (1:1,000) AMPULE SQ ONE (09:20)
[2017-12-01] MEDS ORDERED: CHONDROITIN SU A/HYALUR SOD 1 KIT ONE (09:44)
[2017-12-01] MEDS ORDERED: LIDOCAINE HCL/PF 1% SDV 5ML VIAL ONE (09:46)
[2017-12-01] MEDS ORDERED: EPINEPHrine/PF 1 MG/1 ML (1:1,000) AMPULE ONE (09:46)
[2017-12-01] MEDS ORDERED: LIDOCAINE HCL 4% PRESERVE-FREE 5 ML AMP ONE (09:46)
[2017-12-01 12:56] VITALS: BP 120/65; PULSE 67
--- NOTE | 2017-12-02 20:52 | OP ---
DATE OF OPERATION: 12/01/2017 PREOPERATIVE DIAGNOSIS: Cataract, left eye. POSTOPERATIVE DIAGNOSIS: Cataract, left eye. PROCEDURE: Planned phacoemulsification, with posterior chamber lens implantation, left eye, model [id number], 20.00 diopters. There were no sutures placed. ANESTHESIA: Topical. SURGEON: Florentino Denney M.D. COMPLICATIONS: None. PROCEDURE: The patient was taken to the operating room and anesthesia began with intravenous fluids and sedation. The patient then received topical anesthesia on the left eye. The patient was prepped and draped in the usual manner for sterile ophthalmic surgery. A self-sealing stab incision was made at the 9:00 and 5:00 positions. Viscoat was inserted into the anterior chamber. Using a 2.65 mm keratome, the anterior chamber was entered temporally. A 360-degree continuous capsulorrhexis was then performed. The nucleus was dislocated with hydrodissection. The nucleus was then removed from the eye in an uncomplicated fashion with the posterior capsule remaining intact. Irrigation and aspiration removed the remaining cortex from the eye. A posterior chamber lens was inserted into the bag and well centered. At this time, the remaining Provisc and Viscoat were removed from the eye. The wound was checked multiple times and nicely self-sealing. Stromal hydration was performed with balanced salt solution. The patient completed the procedure in an uncomplicated fashion and went to the ambulatory unit in stable condition. FLORENTINO DENNEY M.D. ARSENIO/[id number]
== END 2017-12-01 11:05 | disposition home or self-care (01) ==
LOC: JASU-SURG 07:27
PROVIDERS: ATTEND Ophthalmology
PROC: 08RK3JZ Replacement of Left Lens with Synthetic Substitute, Percutaneous Approach (ICD-10-PCS; principal; 2017-12-01 09:00)
DX: H26.9 Unspecified cataract (principal)

== ENCOUNTER 2019-04-12 17:17 | Emergency (ER) | payer OTHER, BC ==
[2019-04-12 17:45] VITALS: TEMP 97.4; BMI 26.4
[2019-04-12] MEDS ORDERED: morphine CARPU-JECT 4 MG/1 ML DISP.SYRIN IVPUSH ONE (17:53)
[2019-04-12] MEDS ORDERED: morphine SULFATE 4 MG/ML VIAL ONE (17:54)
[2019-04-12 18:28] LABS: BASO % 0.4 % (0-2.0); EOS % 0.1 % (0-4.5); HEMATOCRIT 34.4 % (32.4-45.2); HEMOGLOBIN 10.9 GM/dL (10.7-15.3); LYMPH % 8.4 % (8-40); MCH 26.8 pg (25.7-33.7); MCHC 31.5 g/dl (32.0-36.0); MEAN PLT VOLUME 8.7 fl (7.5-11.1); MONO % 14.4 % (3.8-10.2); NEUT % 76.7 % (42.8-82.8); PLATELET COUNT 259 K/MM3 (134-434); RBC 4.05 M/mm3 (3.60-5.2); RDW 16.8 % (11.6-15.6); WHITE BLOOD COUNT 12.7 K/mm3 (4.0-10.0)
--- NOTE | 2019-04-12 18:33 | PDOC ---
Attending Attestation - Resident Resident Name: Camilo Viveros - ED Attending Attestation I have performed the following: I have examined & evaluated the patient, The case was reviewed & discussed with the resident, I agree w/resident's findings & plan, Exceptions are as noted - HPI HPI: 04/12/19 18:34 Ms. Terrell is an 88 yo F h/o CVA, Afib (no A/C), hypothyroidism who lives independently and still drives She presents to the ER via EMS s/p fall at home Pt is unable to provide me any details about her fall, unsure if she had preceding chest pain, shortness of breath, palpitations She was unable to get herself to standing She called for help and a neighbor responded Currently, she reports left sided shoulder and hip pain - Physicial Exam PE: 04/12/19 18:33 GENERAL: The patient is in no acute distress, appears uncomfortable. HEAD: Normal EYES: PERRLA, EOMI, sclera anicteric, conjunctiva clear. ENT: Ears normal, nares patent, oropharynx clear without exudates. Moist mucous membranes. NECK: Normal range of motion, supple LUNGS: Breath sounds equal, clear to auscultation bilaterally. No wheezes, and no crackles. HEART:Regular rate and rhythm, normal S1 and S2 without murmur, rub or gallop. ABDOMEN: Soft, nontender, normoactive bowel sounds. No guarding, no rebound. EXTREMITIES: Left shoulder pain, unable to move shoulder, sensation over the left deltoid nml NEUROLOGICAL: Cranial nerves II through XII grossly intact. Normal speech. No focal neurological deficits. MUSCULOSKELETAL: Left hip shortened and externally rotated RIght hip flexed and moves no difficulty SKIN: no lacerations or abrasions 04/12/19 18:36 - Medical Decision Making 04/12/19 18:28 EKG: SR rate of 56 bpm, LAD, no st elevation or depression t wave inversion v3, v5, v6 04/12/19 18:37 Pt with symptoms concerning for shoulder/proximal humerous fracture or shoulder dislocation LEft hip dislocated vs. fractured Pre op labs ordered Torre cathether placed CT imaging Analgesia Signed out to Dr. Valdovinos
--- NOTE | 2019-04-12 18:47 | PDOC ---
History of Present Illness - General Chief Complaint: Injury Stated Complaint: FELL Time Seen by Provider: 04/12/19 17:43 - History of Present Illness Initial Comments: 04/12/19 18:46 88f no pmh presenting s/p mechanical fall from standing to her left side. denies hitting her head. Excruciating pain to the left shoulder and hip, unable to stand or ambulate. Past History - Past Medical History Allergies/Adverse Reactions: Allergies Allergy/AdvReac Type Severity Reaction Status Date / Time No Known Allergies Allergy Verified 04/12/19 17:45 Home Medications: Ambulatory Orders Aspirin [ASA -] 81 mg PO DAILY 01/03/17 Clopidogrel Bisulfate [Plavix -] 75 mg PO DAILY tablet 01/26/17 Levothyroxine [Synthroid -] 50 mcg PO DAILY@0700 tablet 01/26/17 Metoprolol Succinate [Toprol Xl -] 25 mg PO DAILY #7 tab.sr.24h 01/26/17 predniSONE [Deltasone -] 15 mg PO DAILY 11/30/17 Anemia: No Asthma: (H/O PNEUMONIA) Cancer: No Cardiac Disorders: Yes (A.FIB.) CVA: No COPD: No CHF: No Dementia: No Diabetes: No GI Disorders: (PANCREATITIS) Disorders: No HTN: Yes Hypercholesterolemia: No Liver Disease: No Seizures: No Thyroid Disease: No - Surgical History Abdominal Surgery: No Appendectomy: No Cholecystectomy: No Lung Surgery: No Neurologic Surgery: No Orthopedic Surgery: No - Immunization History Immunization Up to Date: Yes - Psycho Social/Smoking Cessation Hx Smoking History: Never smoked Have you smoked in the past 12 months: No Hx Alcohol Use: No Drug/Substance Use Hx: No Substance Use Type: None Hx Substance Use Treatment: No Review of Systems - Review of Systems Able to Perform ROS?: Yes Is the patient limited Lithuanian proficient: No Constitutional: No: Symptoms Reported HEENTM: No: Symptoms Reported Respiratory: No: Symptoms reported Cardiac (ROS): No: Symptoms Reported ABD/GI: No: Symptoms Reported : No: Symptoms Reported Musculoskeletal: Yes: See HPI Integumentary: No: Symptoms Reported Neurological: No: Symptoms reported Endocrine: No: Symptoms Reported Hematologic/Lymphatic: No: Symptoms Reported All Other Systems: Reviewed and Negative *Physical Exam - Vital Signs Last Vital Signs Temp Pulse Resp BP Pulse Ox 97.4 F L 57 L 20 108/43 L 100 04/12/19 17:30 04/12/19 18:20 04/12/19 18:20 04/12/19 18:20 04/12/19 18:20 - Physical Exam General Appearance: Yes: Appropriately Dressed, Severe Distress, Thin HEENT: positive: EOMI, KAYLA, Normal ENT Inspection Respiratory/Chest: positive: Lungs Clear, Normal Breath Sounds. negative: Chest Tender, Respiratory Distress Cardiovascular: positive: Regular Rhythm, Regular Rate, S1, S2 Vascular Pulses: Femoral (R): 2+, Femoral (L): 2+, Dorsalis-Pedis (R): 2+, Doralis-Pedis (L): 2+ Gastrointestinal/Abdominal: positive: Normal Bowel Sounds, Flat. negative: Tender Musculoskeletal: positive: Other (Gross deformity of the proximal left humerus and left hip with shortned leg and externally rotated left leg. Good pulses, full sensation. Unable to actively range or passively) Extremity: positive: Normal Capillary Refill, Normal Inspection. negative: Normal Range of Motion Neurologic: positive: Fully Oriented, Alert, Normal Response ED Treatment Course - LABORATORY CBC & Chemistry Diagram: 04/12/19 18:05 04/12/19 18:05 - RADIOLOGY Radiology Studies Ordered: Category Date Time Status ABDOMEN & PELVIS CT W/O CONTR [CT] Stat CT Scan 04/12/19 18:[address] W/O CONTR [CT] Stat CT Scan 04/12/19 18:[address] WITHOUT CONTRAST [CT] Stat CT Scan 04/12/19 18:[address] (STROKE) [CT] Stat CT Scan 04/12/19 18:[address] W/O CONTR [CT] Stat CT Scan 04/12/19 18:45 Ordered - Medications Given in the ED: ED Medications Discontinued Medications Generic Name Dose Route Start Last Admin Trade Name Freq PRN Reason Stop Dose Admin Morphine Sulfate 4 mg 04/12/19 17:53 04/12/19 18:07 Morphine Injection - IVPUSH 04/12/19 17:54 4 mg ONCE ONE Administration Medical Decision Making - Medical Decision Making 04/12/19 19:11 4mg of morphine for patient with suspected L humerus and hip fracture. Labile BP, dropped from 165 to 65 systolic after admin on morphine, back up to 101. Due to multi trauma decision to jones scan patient. Head, neck, chest, abd/pelvis including left shoulder and hip/femur. Patient signed out to night team. Discharge - Discharge Information Problems reviewed: Yes Clinical Impression/Diagnosis: Hip fracture, left - Follow up/Referral Referrals: Brendan Phoenix MD [Primary Care Provider] - - Patient Discharge Instructions - Post Discharge Activity
[2019-04-12 18:52] LABS: ALBUMIN 3.5 g/dl (3.4-5.0); BILIRUBIN,TOTAL 0.2 mg/dL (0.2-1); CALCIUM 9.4 mg/dL (8.5-10.1); CREATININE 1.1 mg/dL (0.55-1.3); POTASSIUM 4.2 mmol/L (3.5-5.1); TOT PROT 6.6 g/dl (6.4-8.2)
[2019-04-12 19:12] LABS: INR 0.93 (0.83-1.09)
[2019-04-12 19:15] LABS: ACTIVATED PTT 22.8 SECONDS (25.2-36.5)
[2019-04-12 19:56] LABS: ANISOCYTOSIS 1+; MACROCYTOSIS 1+; PLATELET ESTIMATE NORMAL
[2019-04-12] MEDS ORDERED: ACETAMINOPHEN 1000 MG/100 ML VIAL (NON FORMULARY) IVPB ONE (20:07)
[2019-04-12] MEDS ORDERED: LIDOCAINE HCL 1%, 10 MG/ML (50 mL VIAL) SQ ONE (20:16)
--- NOTE | 2019-04-12 20:18 | PDOC ---
*Physical Exam - Vital Signs Last Vital Signs Temp Pulse Resp BP Pulse Ox 97.4 F L 57 L 20 108/43 L 100 04/12/19 17:30 04/12/19 18:20 04/12/19 18:20 04/12/19 18:20 04/12/19 18:20 ED Treatment Course - LABORATORY CBC & Chemistry Diagram: 04/12/19 18:05 04/12/19 18:05 - ADDITIONAL ORDERS Additional order review: Laboratory Results 04/12/19 04/12/19 04/12/19 18:05 18:05 18:05 PT with INR 11.00 INR 0.93 PTT (Actin FS) 22.8 L Sodium 141 Potassium 4.2 Chloride 108 H Carbon Dioxide 24 Anion Gap 10 BUN 28.0 H Creatinine 1.1 Est GFR (CKD-EPI)AfAm 52.65 Est GFR (CKD-EPI)NonAf 45.42 Random Glucose 152 H Calcium 9.4 Total Bilirubin 0.2 AST 25 ALT 37 Alkaline Phosphatase 77 Total Protein 6.6 Albumin 3.5 Blood Type O POSITIVE Antibody Screen Negative 04/12/19 18:05 RBC 4.05 MCV 85.0 MCHC 31.5 L RDW 16.8 H MPV 8.7 D Neutrophils % 76.7 Lymphocytes % 8.4 D Monocytes % 14.4 H Eosinophils % 0.1 Basophils % 0.4 - Medications Given in the ED: ED Medications Discontinued Medications Generic Name Dose Route Start Last Admin Trade Name Freq PRN Reason Stop Dose Admin Morphine Sulfate 4 mg 04/12/19 17:53 04/12/19 18:07 Morphine Injection - IVPUSH 04/12/19 17:54 4 mg ONCE ONE Administration Medical Decision Making - Medical Decision Making 04/12/19 22:13 Patient was received at sign out from Dr. Viveros with pending CT reads. Left lower extremity CT of the left leg shows an acute fracture involving the intertrochanteric and subtrochanteric levels of the proximal left femur with posterior displacement with acute fracture of the lesser trochanter. Acute left humeral proximal non displaced horizontal fracture through the anatomic neck of the left humerus neck. Of note a 0.3 cm right lower lobe pulmonary nodule noted and was relayed to the patient to have follow up. I spoke to orthopedics instrumentation technician (Dr. Rice) and he states patient needs tertiary care transfer given severity of injuries with trauma association. Patient was accepted for transfer to [facility] by Dr. Delacruz. Patient agreed to transfer. 04/12/19 22:16 04/12/19 22:17 Discharge - Discharge Information Clinical Impression/Diagnosis: Hip fracture, left - Follow up/Referral Referrals: Brendan Phoenix MD [Primary Care Provider] - - Patient Discharge Instructions - Post Discharge Activity
[2019-04-12] MEDS ORDERED: ACETAMINOPHEN INJECTION 100 ML IVPB ONE (20:34)
[2019-04-12] MEDS ORDERED: LIDOCAINE HCL 1%, 10 MG/ML (20ML VIAL) ONE (20:35)
[2019-04-12 23:03] VITALS: BP 117/42; PULSE 66
--- NOTE | 2019-04-12 23:43 | CONSULT ---
Consult - text type - Consultation Consultation Note: ORTHOPEDIC SURGERY CONSULTATION NOTE Department of Orthopedic Surgery HISTORY OF PRESENT ILLNESS Azucena Han is an 88 year old female who presents to [facility] with left shoulder and left hip pain. The orthopedic service was consulted for a left proximal humerus fracture-dislocation and a left hip fracture. The injury occurred today after a mechanical vs syncopal fall. The patient does not recall the exact events. The patient notes pain to the left shoulder and left hip. Denies any other injuries. Denies numbness, tingling or other constitutional complaints. The patient is retired. Denies tobacco use, drug use, alcohol abuse. The patient lives alone and uses a cane at baseline. 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 History of Recent Travel No Allergies Allergy/AdvReac Type Severity Reaction Status Date / Time No Known Allergies Allergy Verified 04/12/19 17:45 Vital Signs (last) Temp Pulse Resp BP Pulse Ox 97.4 F L 66 20 117/42 L 100 04/12/19 17:30 04/12/19 23:00 04/12/19 23:00 04/12/19 23:00 04/12/19 23:00 Intake and Output 04/10/19 04/11/19 04/12/19 23:59 23:59 23:59 Output Total 20 Balance -20 Output: Urine 20 Torre 20 Other: Voiding Method Diaper Weight 135 lb Height 5 ft Body Mass Index (BMI) 26.4 Weight Measurement Method Estimated by Staff Laboratory 04/12/19 18:05 04/12/19 18:05 PT with INR 11.00 SEC (9.7-13.0) 04/12/19 18:05 PTT (Actin FS) 22.8 SECONDS (25.2-36.5) L 04/12/19 18:05 FAMILY HISTORY Review and non-contributory. REVIEW OF SYMPTOMS A twelve-point review of systems was performed and was negative except as noted in HPI. PHYSICAL EXAM Constitutional: Alert and oriented to person, place, and time. Appears well- developed and well-nourished. No acute distress, appropriate mood and affect. Right Upper Extremity: No tenderness to palpation. Full passive and active ROM, free from pain. Left Upper Extremity: Deformity of left shoulder. Skin warm, dry, and intact; no lesions, rashes or ulcers noted. Muscle mass equal and symmetric to contralateral side. No atrophy noted. Tender to palpation at left shoulder; nontender throughout rest of extremity. Full passive and active ROM elbow and wrist, free from pain. Joints stable with no pathologic laxity. M/R/U/MSK/AX motor intact; SILT distally; 2+ radial pulses; Cap refill brisk. Tone and reflexes normal. Right Lower Extremity: Skin warm, dry, and intact; no lesions, rashes or ulcers noted. No tenderness to palpation. No cords or calf tenderness No significant calf/ankle edema. Full passive and active ROM, free from pain. Joints stable with no pathologic laxity. EHL/TA/GS motor intact; SILT distally; 2+ DP pulses; Cap refill brisk. Tone and reflexes normal. Left Lower Extremity: Leg shortened and externally rotated. Skin warm, dry, and intact; no lesions, rashes or ulcers noted. Muscle mass equal and symmetric to contralateral side. No atrophy noted. No masses or effusions noted. Positive log roll and heel strike. Tender to palpation at ; nontender throughout rest of extremity. No cords or calf tenderness No significant calf/ankle edema. Full passive and active ROM, free from pain. Joints stable with no pathologic laxity. EHL/TA/GS motor intact; SILT distally; 2+ DP pulses; Cap refill brisk. Tone and reflexes normal. IMAGING I personally reviewed left shoulder and left hip radiographs. They demonstrate a left 4-part proximal humerus fracture-dislocation. There is a left comminuted subtrochanteric hip fracture. ASSESSMENT AND PLAN Azucena Han is an 88 year old female presenting status post fall with a left sided 4-part proximal humerus fracture-dislocation and a left subtrochanteric hip fracture. We have reviewed the imaging and clinical findings in detail, as well as their potential implications. No attempt at reduction was attempted due to potential to displace the fracture fragments. The patient would benefit from transfer to a tertiary care center. This was discussed with the on-call surgeon at [facility] who accepted the patient for transfer. All questions were answered. Thank you for involving our team in the care of this patient. Please call us at [phone] with questions
[2019-04-12] MEDS ORDERED: morphine CARPU-JECT 2 MG/1 ML DISP.SYRIN SQ ONE (23:45)
[2019-04-12] MEDS ORDERED: MORPHINE SULFATE 2 MG/ML VIAL ONE (23:51)
--- NOTE | 2019-04-13 09:55 | EKG ---
Test Reason : Blood Pressure : / mmHG Vent. Rate : 056 BPM Atrial Rate : 056 BPM P-R Int : 150 ms QRS Dur : 072 ms QT Int : 456 ms P-R-T Axes : 058 -35 023 degrees QTc Int : 440 ms SINUS BRADYCARDIA LEFT AXIS DEVIATION ABNORMAL ECG WHEN COMPARED WITH ECG OF 26-JAN-2017 13:57, NONSPECIFIC T WAVE ABNORMALITY, IMPROVED IN ANTERIOR LEADS T WAVE INVERSION NOW EVIDENT IN LATERAL LEADS Confirmed by DAPHNE MARTIN, BILLY ([id number]) on 04/13/2019 9:55:35 AM Referred By: MILENA Confirmed By:BILLY SERNA MD
== END 2019-04-13 00:23 | disposition short-term general hospital (02) ==
LOC: JER 17:17
PROC: 0T9B70Z Drainage of Bladder with Drainage Device, Via Natural or Artificial Opening (ICD-10-PCS; principal; 2019-04-12)
PROC: 3E033NZ Introduction of Analgesics, Hypnotics, Sedatives into Peripheral Vein, Percutaneous Approach (ICD-10-PCS; 2019-04-12)
PROC: 3E033NZ Introduction of Analgesics, Hypnotics, Sedatives into Peripheral Vein, Percutaneous Approach (ICD-10-PCS; 2019-04-12)
PROC: 3E023BZ Introduction of Anesthetic Agent into Muscle, Percutaneous Approach (ICD-10-PCS; 2019-04-12)
PROC: 3E023NZ Introduction of Analgesics, Hypnotics, Sedatives into Muscle, Percutaneous Approach (ICD-10-PCS; 2019-04-12)
DX: S72.102A Unspecified trochanteric fracture of left femur, initial encounter for closed fracture (principal); S42.292A Other displaced fracture of upper end of left humerus, initial encounter for closed fracture; W19.XXXA Unspecified fall, initial encounter; Y93.89 Activity, other specified; Y92.038 Other place in apartment as the place of occurrence of the external cause; Y99.8 Other external cause status; I48.91 Unspecified atrial fibrillation; Z79.02 Long term (current) use of antithrombotics/antiplatelets; E03.9 Hypothyroidism, unspecified; Z86.73 Personal history of transient ischemic attack (TIA), and cerebral infarction without residual deficits; I10 Essential (primary) hypertension; Z87.01 Personal history of pneumonia (recurrent)
CPT/HCPCS: 36415; 51702; 70450-TC; 71250-TC; 72125-TC; 73030-TC-LT-FY; 73700-TC-RT; 74176-TC; 80053; 85025; 85610; 85730; 86850; 86900; 86901; 93005; 93010; 96372; 96374; 96375; 99285-25; J0131